=== PATIENT | male | born 1945 | race Caucasian/White ===

== ENCOUNTER 2018-04-12 20:21 | Emergency (ER) | payer SELFPAY ==
[2018-04-12 20:52] VITALS: BP 144/98; PULSE 120; RESP 18; TEMP 36.6; O2SAT 98; BMI 22.4
[2018-04-12 21:00] VITALS: BP 136/82; PULSE 104; O2SAT 98
[2018-04-12 21:08] LABS: Bacteria Urine None Seen; WBC Urine None Seen (0-5/HPF)
[2018-04-12 21:18] LABS: RBC Urine 5-10/HPF (0-5/HPF)
[2018-04-12 21:19] LABS: Culture Indicated Urine Cult Not Indicated
--- NOTE | 2018-04-12 21:26 | ED.MALEGU ---
HPI - Male Genitourinary <ROSSY Lemon - Last Filed: 04/12/18 21:33> General Chief complaint: Urogenital-Male Stated complaint: UNABLE TO PEE Time Seen by Provider: 04/12/18 21:02 Source: patient Mode of arrival: ambulatory Limitations: no limitations History of Present Illness HPI Narrative: Patient presents with chief complaint of urinary retention. He has a history of BPH and takes Flomax. He sees a urologist. He states from time to time he has urinary retention problems and ends up needing a Karimi catheter with a leg bag. He denies any UTI symptoms including dysuria urgency or frequency. he states he has not had a full urination since yesterday and last void was about 50 cc at 5:00 p.m.. He denies any fever, nausea vomiting or diarrhea. He denies any chest pain or shortness of breath. Upon arrival his bladder scan for 750 cc an a Karimi catheter was placed. Related Data Home Medications Medication Instructions Recorded Confirmed ASPIRIN (#ASPIR 81) 81 mg PO EVERY OTHER DAY #0 12/01/11 Previous Rx's Medication Instructions Recorded hydrochlorothiazide 25 mg PO QDAY #365 tab 01/11/17 lisinopril [Zestril] 10 mg PO Q DAY #365 tab 01/11/17 levothyroxine 137 mcg PO QDAY@0600 #90 tab 01/21/18 simvastatin 40 mg PO QDAY #90 tab 04/09/18 Allergies Allergy/AdvReac Type Severity Reaction Status Date / Time No Known Drug Allergies Allergy Verified 04/12/18 20:57 Review of Systems <ROSSY Lemon - Last Filed: 04/12/18 21:33> Review of Systems GENERAL: Denies chills, fatigue, malaise, fever, sweats. HEENT: Denies sinus pain, ear pain, sore throat, difficulty swallowing, dizziness. RESPIRATORY: Denies dyspnea, cough, wheezing, hemoptysis, sputum. CARDIOVASCULAR: Denies chest pain, palpitations, orthopnea, edema, GASTROINTESTINAL: Denies nausea, vomiting, abdominal pain, diarrhea, constipation, melena. : see HPI MUSCULOSKELETAL: denies weakness, joint pain, or bony pain SKIN: Denies rash, skin lesions, or other NEUROLOGIC: Denies weakness, headache, numbness, change in speech, confusion, seizures, incoordination. PSYCHIATRIC: No concerning psychosocial issues. 12 point review of systems is negative except for those stated above Exam <MODE Lemon - Last Filed: 04/12/18 21:33> Narrative Exam Narrative: GENERAL: obese elderly gentleman lying on stretcher HEAD: Atraumatic. Normocephalic. No temporal or scalp tenderness. EYES: Pupils equal round and reactive. Extraocular motions intact. No scleral icterus. No injection or drainage. ENT: Nose without bleeding, purulent drainage or septal hematoma. Throat without erythema, tonsillar hypertrophy or exudate. Uvula midline. Airway patent. NECK: Trachea midline. No JVD or lymphadenopathy. Supple, nontender, no meningeal signs. CARDIOVASCULAR: Regular rate and rhythm RESPIRATORY: Clear to auscultation. Breath sounds equal bilaterally. No wheezes, rales, or rhonchi. GASTROINTESTINAL: Abdomen soft, non-tender, nondistended. No hepato-splenomegaly, or palpable masses. No guarding. active bowel sounds all 4 quadrants. No pain to palpation. EXTREMITIES: No clubbing, cyanosis, or edema. No joint tenderness, effusion, or edema noted. BACK: Nontender without deformity or crepitance. No flank tenderness. NEURO: AOx3. SKIN: No rash or erythema. Initial Vital Signs Initial Vital Signs: Vital Signs Temperature 97.9 F 04/12/18 20:52 Pulse Rate 120 H 04/12/18 20:52 Respiratory Rate 18 04/12/18 20:52 Blood Pressure 144/98 H 04/12/18 20:52 Pulse Oximetry 98 04/12/18 20:52 <Aleah Nelson DO - Last Filed: 04/13/18 04:19> Initial Vital Signs Initial Vital Signs: Vital Signs Temperature 97.9 F 04/12/18 20:52 Pulse Rate 120 H 04/12/18 20:52 Respiratory Rate 18 04/12/18 20:52 Blood Pressure 144/98 H 04/12/18 20:52 Pulse Oximetry 98 04/12/18 20:52 Course <MODE Lemon - Last Filed: 04/12/18 21:33> Course Narrative: Orders Ordered: ED Orders 04/12/18 20:45 Urine Microscopic Stat Vital Signs - 8 hr 04/12/18 20:52 04/12/18 21:00 Temperature 97.9 F Pulse Rate 120 H 104 H Respiratory Rate 18 Blood Pressure 144/98 H Blood Pressure [Right Arm] 136/82 Pulse Oximetry 98 98 <Aleah Nelson DO - Last Filed: 04/13/18 04:19> Orders Ordered: ED Orders 04/12/18 20:45 Urine Microscopic Stat Vital Signs - 8 hr 04/12/18 20:52 04/12/18 21:00 Temperature 97.9 F Pulse Rate 120 H 104 H Respiratory Rate 18 Blood Pressure 144/98 H Blood Pressure [Right Arm] 136/82 Pulse Oximetry 98 98 MDM - Male Genitourinary <ROSSY LemonBC - Last Filed: 04/12/18 21:33> Lab Data Lab Results 04/12/18 Range/Units 20:45 Urine RBC 5-10/hpf H (0-5/HPF) Urine WBC None seen (0-5/HPF) Urine Bacteria None seen (None) Ur Culture Indicated? Cult not indicated Micro UA Comment Not Reportable Urine Dip Bedside Urine Glucose Negative Bedside Urine Bilirubin - Negative Bedside Urine Ketone - Negative Urine Specific [place] 1.025 Bedside Urine Occult Blood ++ Bedside Urine pH 6.0 Bedside Urine Protein +/- 15 Bedside Urine Urobilinogen - Negative Bedside Urine Nitrite - Negative Bedside Urine Leukocytes - Negative Esterase MDM Narrative Medical decision making narrative: Patient presents with chief complaint of urinary retention. He was bladder scanned for 750 cc in the Karimi catheter was placed. A UA was sent and did not have any signs of infection. Patient states he has experienced with home Karimi catheters and is comfortable managing one. He states understanding follow-up with Urology. I encouraged him to clean his catheter as well as monitor for signs and symptoms of infection. Discussed return precautions and has no questions upon discharge. <Aleah Nelson DO - Last Filed: 04/13/18 04:19> Lab Data Lab Results 04/12/18 Range/Units 20:45 Urine RBC 5-10/hpf H (0-5/HPF) Urine WBC None seen (0-5/HPF) Urine Bacteria None seen (None) Ur Culture Indicated? Cult not indicated Micro UA Comment Not Reportable Urine Dip Bedside Urine Glucose Negative Bedside Urine Bilirubin - Negative Bedside Urine Ketone - Negative Urine Specific [place] 1.025 Bedside Urine Occult Blood ++ Bedside Urine pH 6.0 Bedside Urine Protein +/- 15 Bedside Urine Urobilinogen - Negative Bedside Urine Nitrite - Negative Bedside Urine Leukocytes - Negative Esterase Discharge Plan Departure Patient Disposition: Home Clinical Impression: Acute urinary retention Discharge Date/Time: 04/12/18 21:42 Interventions: ED Discharge Assessment Last Done: 04/12/18 21:42 Instructions: How to Care for Your Karimi Catheter -- Male, DI for Urinary Retention in Men Activity Restrictions/Additional Instructions: we placed a Karimi catheter today. Please follow-up with your urologist as discussed. Please keep her catheter clean and monitor for signs symptoms of infection including flank pain and fever. I have given you contact information for several different Urology practices. Prescriptions: No Action ASPIRIN (#ASPIR 81) 81 mg PO EVERY OTHER DAY Qty: 0 RF: 0 lisinopril [Zestril] 10 MG tablet 10 mg PO Q DAY Qty: 365 RF: 3 hydrochlorothiazide 25 MG tablet 25 mg PO QDAY Qty: 365 RF: 0 levothyroxine 137 mcg tablet 137 mcg PO QDAY@0600 Qty: 90 RF: 0 simvastatin 40 mg tablet 40 mg PO QDAY Qty: 90 RF: 3 Referrals: [facility] Urology [Outside] [facility]rology [Outside] [facility] [Outside] [facility]rology [Outside] Jude Thorne MD [Primary Care Provider] - <Aleah Nelson DO - Last Filed: 04/13/18 04:19> [facility] Att[facility]: I was immediately available in the department for consultation. Documentation has been reviewed. I agree with assessment and plan.
--- NOTE | 2018-04-12 21:32 | ED_ITS ---
HPI - Male Genitourinary <ROSSY Lemon - Last Filed: 04/12/18 21:33> General Chief complaint: Urogenital-Male Stated complaint: UNABLE TO PEE Time Seen by Provider: 04/12/18 21:02 Source: patient Mode of arrival: ambulatory Limitations: no limitations History of Present Illness HPI Narrative: Patient presents with chief complaint of urinary retention. He has a history of BPH and takes Flomax. He sees a urologist. He states from time to time he has urinary retention problems and ends up needing a Karimi catheter with a leg bag. He denies any UTI symptoms including dysuria urgency or frequency. he states he has not had a full urination since yesterday and last void was about 50 cc at 5:00 p.m.. He denies any fever, nausea vomiting or diarrhea. He denies any chest pain or shortness of breath. Upon arrival his bladder scan for 750 cc an a Karimi catheter was placed. Related Data Home Medications Medication Instructions Recorded Confirmed ASPIRIN (#ASPIR 81) 81 mg PO EVERY OTHER DAY #0 12/01/11 Previous Rx's Medication Instructions Recorded hydrochlorothiazide 25 mg PO QDAY #365 tab 01/11/17 lisinopril [Zestril] 10 mg PO Q DAY #365 tab 01/11/17 levothyroxine 137 mcg PO QDAY@0600 #90 tab 01/21/18 simvastatin 40 mg PO QDAY #90 tab 04/09/18 Allergies Allergy/AdvReac Type Severity Reaction Status Date / Time No Known Drug Allergies Allergy Verified 04/12/18 20:57 Review of Systems <ROSSY Lemon - Last Filed: 04/12/18 21:33> Review of Systems GENERAL: Denies chills, fatigue, malaise, fever, sweats. HEENT: Denies sinus pain, ear pain, sore throat, difficulty swallowing, dizziness. RESPIRATORY: Denies dyspnea, cough, wheezing, hemoptysis, sputum. CARDIOVASCULAR: Denies chest pain, palpitations, orthopnea, edema, GASTROINTESTINAL: Denies nausea, vomiting, abdominal pain, diarrhea, constipation, melena. : see HPI MUSCULOSKELETAL: denies weakness, joint pain, or bony pain SKIN: Denies rash, skin lesions, or other NEUROLOGIC: Denies weakness, headache, numbness, change in speech, confusion, seizures, incoordination. PSYCHIATRIC: No concerning psychosocial issues. 12 point review of systems is negative except for those stated above Exam <MODE Lemon - Last Filed: 04/12/18 21:33> Narrative Exam Narrative: GENERAL: obese elderly gentleman lying on stretcher HEAD: Atraumatic. Normocephalic. No temporal or scalp tenderness. EYES: Pupils equal round and reactive. Extraocular motions intact. No scleral icterus. No injection or drainage. ENT: Nose without bleeding, purulent drainage or septal hematoma. Throat without erythema, tonsillar hypertrophy or exudate. Uvula midline. Airway patent. NECK: Trachea midline. No JVD or lymphadenopathy. Supple, nontender, no meningeal signs. CARDIOVASCULAR: Regular rate and rhythm RESPIRATORY: Clear to auscultation. Breath sounds equal bilaterally. No wheezes , rales, or rhonchi. GASTROINTESTINAL: Abdomen soft, non-tender, nondistended. No hepato-splenomegaly , or palpable masses. No guarding. active bowel sounds all 4 quadrants. No pain to palpation. EXTREMITIES: No clubbing, cyanosis, or edema. No joint tenderness, effusion, or edema noted. BACK: Nontender without deformity or crepitance. No flank tenderness. NEURO: AOx3. SKIN: No rash or erythema. Initial Vital Signs Initial Vital Signs: Vital Signs Temperature 97.9 F 04/12/18 20:52 Pulse Rate 120 H 04/12/18 20:52 Respiratory Rate 18 04/12/18 20:52 Blood Pressure 144/98 H 04/12/18 20:52 Pulse Oximetry 98 04/12/18 20:52 <Aleah Nelson DO - Last Filed: 04/13/18 04:19> Initial Vital Signs Initial Vital Signs: Vital Signs Temperature 97.9 F 04/12/18 20:52 Pulse Rate 120 H 04/12/18 20:52 Respiratory Rate 18 04/12/18 20:52 Blood Pressure 144/98 H 04/12/18 20:52 Pulse Oximetry 98 04/12/18 20:52 Course <MODE Lemon - Last Filed: 04/12/18 21:33> Course Narrative: Orders Ordered: ED Orders 04/12/18 20:45 Urine Microscopic Stat Vital Signs - 8 hr 04/12/18 20:52 04/12/18 21:00 Temperature 97.9 F Pulse Rate 120 H 104 H Respiratory Rate 18 Blood Pressure 144/98 H Blood Pressure [Right Arm] 136/82 Pulse Oximetry 98 98 <Aleah Nelson DO - Last Filed: 04/13/18 04:19> Orders Ordered: ED Orders 04/12/18 20:45 Urine Microscopic Stat Vital Signs - 8 hr 04/12/18 20:52 04/12/18 21:00 Temperature 97.9 F Pulse Rate 120 H 104 H Respiratory Rate 18 Blood Pressure 144/98 H Blood Pressure [Right Arm] 136/82 Pulse Oximetry 98 98 MDM - Male Genitourinary <ROSSY LemonBC - Last Filed: 04/12/18 21:33> Lab Data Lab Results 04/12/18 Range/Units 20:45 Urine RBC 5-10/hpf H (0-5/HPF) Urine WBC None seen (0-5/HPF) Urine Bacteria None seen (None) Ur Culture Indicated? Cult not indicated Micro UA Comment Not Reportable Urine Dip Bedside Urine Glucose Negative Bedside Urine Bilirubin - Negative Bedside Urine Ketone - Negative Urine Specific [place] 1.025 Bedside Urine Occult Blood ++ Bedside Urine pH 6.0 Bedside Urine Protein +/- 15 Bedside Urine Urobilinogen - Negative Bedside Urine Nitrite - Negative Bedside Urine Leukocytes - Negative Esterase MDM Narrative Medical decision making narrative: Patient presents with chief complaint of urinary retention. He was bladder scanned for 750 cc in the Karimi catheter was placed. A UA was sent and did not have any signs of infection. Patient states he has experienced with home Karimi catheters and is comfortable managing one. He states understanding follow-up with Urology. I encouraged him to clean his catheter as well as monitor for signs and symptoms of infection. Discussed return precautions and has no questions upon discharge. <Aleah Nelson DO - Last Filed: 04/13/18 04:19> Lab Data Lab Results 04/12/18 Range/Units 20:45 Urine RBC 5-10/hpf H (0-5/HPF) Urine WBC None seen (0-5/HPF) Urine Bacteria None seen (None) Ur Culture Indicated? Cult not indicated Micro UA Comment Not Reportable Urine Dip Bedside Urine Glucose Negative Bedside Urine Bilirubin - Negative Bedside Urine Ketone - Negative Urine Specific [place] 1.025 Bedside Urine Occult Blood ++ Bedside Urine pH 6.0 Bedside Urine Protein +/- 15 Bedside Urine Urobilinogen - Negative Bedside Urine Nitrite - Negative Bedside Urine Leukocytes - Negative Esterase Discharge Plan Departure Patient Disposition: Home Clinical Impression: Acute urinary retention Discharge Date/Time: 04/12/18 21:42 Interventions: ED Discharge Assessment Last Done: 04/12/18 21:42 Instructions: How to Care for Your Karimi Catheter -- Male, DI for Urinary Retention in Men Activity Restrictions/Additional Instructions: we placed a Karimi catheter today. Please follow-up with your urologist as discussed. Please keep her catheter clean and monitor for signs symptoms of infection including flank pain and fever. I have given you contact information for several different Urology practices. Prescriptions: No Action ASPIRIN (#ASPIR 81) 81 mg PO EVERY OTHER DAY Qty: 0 RF: 0 lisinopril [Zestril] 10 MG tablet 10 mg PO Q DAY Qty: 365 RF: 3 hydrochlorothiazide 25 MG tablet 25 mg PO QDAY Qty: 365 RF: 0 levothyroxine 137 mcg tablet 137 mcg PO QDAY@0600 Qty: 90 RF: 0 simvastatin 40 mg tablet 40 mg PO QDAY Qty: 90 RF: 3 Referrals: [facility]rology [Outside] [facility]rology [Outside] [facility] [Outside] [facility]rology [Outside] Jude Thorne MD [Primary Care Provider] - <Aleah Nelson DO - Last Filed: 04/13/18 04:19> [facility] Att[facility]: I was immediately available in the department for consultation. Documentation has been reviewed. I agree with assessment and plan.
== END 2018-04-12 21:42 | disposition home or self-care (01) ==
PROVIDERS: Emergency Medicine; Emergency Provider Nurse Practitioner Family; PCP Internal Medicine
DX: R33.9 Retention of urine, unspecified (principal)
CPT/HCPCS: 51701; 51798; 81003; 81015; 99283

== ENCOUNTER 2018-05-27 10:05 | Emergency (ER) | payer SELFPAY ==
[2018-05-27 10:10] VITALS: PULSE 121; RESP 18; O2SAT 97; BMI 34.2
--- NOTE | 2018-05-27 11:13 | PC.NURSE ---
Pt w/ long history of urinary retention r/t enlarged prostate. Had solis removed yesterday and has been unable to void since that time. Appears uncomfortable.
[2018-05-27 11:28] LABS: Bacteria Urine None Seen
[2018-05-27 11:29] LABS: Appearance Urine UA CLEAR; Bilirubin Urine UA NEGATIVE (NEGATIVE); Color Urine UA YELLOW; Glucose Urine UA NEGATIVE (Normal); Ketones Urine UA NEGATIVE (NEGATIVE); Leukocyte Esterase Urine UA NEGATIVE (NEGATIVE); Nitrite Urine UA NEGATIVE (Negative); Occult Blood Urine UA 3+ (Negative); Protein Urine UA NEGATIVE (Negative); Urobilinogen Urine UA 0.2 E.U./dL (0.2); pH Urine UA 6.5 (4.5-8.0)
[2018-05-27 11:40] LABS: Culture Indicated Urine Specimen Cultured; WBC Urine 10-30/HPF (0-5/HPF)
[2018-05-27 11:41] LABS: RBC Urine 5-10/HPF (0-5/HPF)
[2018-05-27 11:54] VITALS: BP 105/66; PULSE 98; RESP 16; O2SAT 94
--- NOTE | 2018-05-27 12:41 | ED_ITS ---
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 He states that he has had issues with this for more than a year. Last time catheter was placed was 6 weeks ago, removed yesterday for a trial. He states that initially he was able to urinate, but had continually decreased stream since then and last time he was able to urinate with 6:00 a.m. and just a dribble. He denies any new symptoms such as frequency, dysuria, or fever. He states that he has some blood periodically with the catheter, especially with insertion and removal. He denies any new fever, abdominal pain, nausea, vomiting or other complaints. Related Data Home Medications Medication Instructions Recorded Confirmed aspirin 81 mg PO EVERY OTHER DAY #0 12/01/11 05/27/18 hydrochlorothiazide 25 mg PO DAILY 05/27/18 05/27/18 levothyroxine 137 mcg PO DAILY 05/27/18 05/27/18 lisinopril [Zestril] 10 mg PO DAILY 05/27/18 05/27/18 simvastatin 40 mg PO DAILY 05/27/18 05/27/18 Allergies Allergy/AdvReac Type Severity Reaction Status Date / Time No Known Drug Allergies Allergy Verified 05/27/18 10:10 Review of Systems <Mikki Guerrero PA-C - Last Filed: 05/27/18 21:34> Review of Systems All systems reviewed & are unremarkable except as noted in HPI and below Exam <Mikki Guerrero PA-C - Last Filed: 05/27/18 21:34> Narrative Exam Narrative: GENERAL APPEARANCE: Patient sitting comfortably, in no distress. LUNGS: Clear to auscultation bilaterally. HEART: Rate and rhythm regular without murmur, normal S1 and S2, no S3 or S4. ABDOMEN: Soft, NT, ND, +BS x 4 quadrants, no CVAT. EXTREMITIES: No edema or calf tenderness NEURO: Alert and oriented, normal speech and coordination Initial Vital Signs Initial Vital Signs: Vital Signs Pulse Rate 121 H 05/27/18 10:10 Respiratory Rate 18 05/27/18 10:10 Pulse Oximetry 97 05/27/18 10:10 <DO Ayesha Braga Last Filed: 05/28/18 08:47> Initial Vital Signs Initial Vital Signs: Vital Signs Pulse Rate 121 H 05/27/18 10:10 Respiratory Rate 18 05/27/18 10:10 Pulse Oximetry 97 05/27/18 10:10 Course <Mikki Guerrero PA-C - Last Filed: 05/27/18 21:34> Orders Ordered: Discontinued Medications Lidocaine HCl (Urojet) 5 ml TOP NOW ONE Stop: 05/27/18 11:14 Last Admin: 05/27/18 13:32 Dose: 5 ml Vital Signs - 8 hr 05/27/18 10:10 05/27/18 11:54 05/27/18 12:50 Temperature 98.1 F Pulse Rate 121 H 98 H 94 H Respiratory Rate 18 16 17 Blood Pressure [Right Arm] 105/66 114/69 Pulse Oximetry 97 94 99 <DO Ayesha Braga Last Filed: 05/28/18 08:47> Orders Ordered: Discontinued Medications Lidocaine HCl (Urojet) 5 ml TOP NOW ONE Stop: 05/27/18 11:14 Last Admin: 05/27/18 13:32 Dose: 5 ml Vital Signs - 8 hr 05/27/18 10:10 05/27/18 11:54 05/27/18 12:50 Temperature 98.1 F Pulse Rate 121 H 98 H 94 H Respiratory Rate 18 16 17 Blood Pressure [Right Arm] 105/66 114/69 Pulse Oximetry 97 94 99 MDM - Male Genitourinary <Mikki Guerrero PA-C - Last Filed: 05/27/18 21:34> Lab Data Lab Results 05/27/18 Range/Units 11:05 Urine Color Yellow Urine Appearance Clear Urine pH 6.5 (4.5-8.0) Ur Specific [place] 1.010 (1.000-1.035) Urine Protein Negative (Negative) Urine Glucose (UA) Negative (Normal) g/dL Urine Ketones Negative (NEGATIVE) Urine Occult Blood 3+ H (Negative) Urine Nitrate Negative (Negative) Urine Bilirubin Negative (NEGATIVE) Urine Urobilinogen 0.2 (0.2) E.U./dL Ur Leukocyte Esterase Negative (NEGATIVE) Urine RBC 5-10/hpf H (0-5/HPF) Urine WBC 10-30/hpf H (0-5/HPF) Urine Bacteria None seen (None) Ur Culture Indicated? Specimen cultured Micro UA Comment Not Reportable <Aleah DO Omar - Last Filed: 05/28/18 08:47> Lab Data Lab Results 05/27/18 Range/Units 11:05 Urine Color Yellow Urine Appearance Clear Urine pH 6.5 (4.5-8.0) Ur Specific [place] 1.010 (1.000-1.035) Urine Protein Negative (Negative) Urine Glucose (UA) Negative (Normal) g/dL Urine Ketones Negative (NEGATIVE) Urine Occult Blood 3+ H (Negative) Urine Nitrate Negative (Negative) Urine Bilirubin Negative (NEGATIVE) Urine Urobilinogen 0.2 (0.2) E.U./dL Ur Leukocyte Esterase Negative (NEGATIVE) Urine RBC 5-10/hpf H (0-5/HPF) Urine WBC 10-30/hpf H (0-5/HPF) Urine Bacteria None seen (None) Ur Culture Indicated? Specimen cultured Micro UA Comment Not Reportable Discharge Plan Departure Patient Disposition: Home Clinical Impression: Enlarged prostate with urinary retention Discharge Date/Time: 05/27/18 13:42 Interventions: ED Discharge Assessment Last Done: 05/27/18 13:41 Instructions: How to Care for Your Karimi Catheter -- Male, DI for Urinary Retention in Men Activity Restrictions/Additional Instructions: Since this is similar to the urinary retention you have had in the past due to enlarged prostate, please keep the catheter in. Please continue your current medications including tamsulosin. Please call your urologist when you leave today and arrange for follow-up (let them know that you were seen in the ED to reinsert the catheter). Prescriptions: No Action aspirin 81 mg Tablet,Delayed Release (Dr/Ec) 81 mg PO EVERY OTHER DAY Qty: 0 RF: 0 levothyroxine 137 mcg tablet 137 mcg PO DAILY RF: 0 simvastatin 40 mg tablet 40 mg PO DAILY RF: 0 lisinopril [Zestril] 10 mg tablet 10 mg PO DAILY RF: 0 hydrochlorothiazide 25 mg tablet 25 mg PO DAILY RF: 0 Referrals: Norma Thompson MD [Non-Staff] - Jude Thorne MD [Primary Care Provider] - <Aleah Nelson DO - Last Filed: 05/28/18 08:47> [facility] ED Attending Cosignature Attestation: I was immediately available in the department for consultation. Documentation has been reviewed. I agree with assessment and plan.
[2018-05-27 12:50] VITALS: BP 114/69; PULSE 94; RESP 17; TEMP 36.7; O2SAT 99
[2018-05-27] MEDS: LIDOCAINE 2% (UROJET) 5 ML GEL TOP (13:32)
--- NOTE | 2018-05-27 13:33 | PC.NURSE ---
Pt noted to have dark urine. Encouraged increased po fluids. Pt verbalized understanding.
== END 2018-05-27 13:42 | disposition home or self-care (01) ==
PROVIDERS: Emergency Medicine; Emergency Provider Internal Medicine; PCP Internal Medicine
DX: N40.1 Benign prostatic hyperplasia with lower urinary tract symptoms (principal); R33.8 Other retention of urine
CPT/HCPCS: 51701; 81001; 87086; 99283

== ENCOUNTER → 2018-08-07 15:38 | Outpatient (CLI) | payer SELFPAY ==
[2018-08-07 17:13] LABS: Alanine Aminotransferase 29 IU/L (21-72); Albumin 4.2 g/dL (3.5-5.0); Albumin Globulin Ratio 1.4 (1.0-2.8); Alkaline Phosphatase 67 U/L (38-126); Aspartate Aminotransferase 22 IU/L (17-59); Bilirubin Total 0.9 mg/dL (0.2-1.3); Blood Urea Nitrogen 14 mg/dL (9-20); Calcium 9.7 mg/dL (8.4-10.2); Carbon Dioxide 25 mmol/L (22-32); Chloride 101 mmol/L (98-107); Cholesterol 141 mg/dL (140-199); Estimated Glomerular Filt Rate > 60.0 mL/min (>60); Glucose 90 mg/dL (80-110); HDL Cholesterol 44 mg/dL (40-60); HEMOLYSIS < 15 (0-50); LDL Cholesterol Calculated 76 mg/dL (<100); Potassium 4.3 mmol/L (3.4-5.1); Sodium 138 mmol/L (137-145); Total Protein 7.2 g/dL (6.3-8.2); Triglycerides 106 mg/dL (35-150)
[2018-08-07 17:27] LABS: Free T4, Direct Thyroxine 1.84 ng/dL (0.78-2.19)
[2018-08-07 17:41] LABS: Thyroid Stimulating Hormone 3.64 uIU/mL (0.47-4.68)
== END ==
PROVIDERS: PCP Internal Medicine; Visit Provider Internal Medicine
DX: E03.9 Hypothyroidism, unspecified (principal); E78.5 Hyperlipidemia, unspecified; I10 Essential (primary) hypertension; R97.20 Elevated prostate specific antigen [PSA]
CPT/HCPCS: 36415; 80053; 80061; 84153; 84439; 84443

== ENCOUNTER → 2020-01-20 13:59 | Outpatient (CLI) | payer SELFPAY ==
[2020-01-20 16:29] LABS: Alanine Aminotransferase 18 IU/L (<50); Albumin 4.2 g/dL (3.5-5.0); Albumin Globulin Ratio 1.6 (1.0-2.8); Alkaline Phosphatase 61 U/L (38-126); Aspartate Aminotransferase 26 IU/L (17-59); Bilirubin Total 1.1 mg/dL (0.2-1.3); Blood Urea Nitrogen 16 mg/dL (9-20); Carbon Dioxide 28 mmol/L (22-32); Chloride 101 mmol/L (98-107); Cholesterol 130 mg/dL (140-199); Estimated Glomerular Filt Rate > 60.0 mL/min (>60); Globulin 2.7 g/dL (1.7-4.1); Glucose 80 mg/dL (80-110); HDL Cholesterol 40 mg/dL (40-60); HEMOLYSIS < 15 (0-50); LDL Cholesterol Calculated 74 mg/dL (<100); Potassium 4.2 mmol/L (3.4-5.1); Sodium 137 mmol/L (137-145); Total Protein 6.9 g/dL (6.3-8.2); Triglycerides 81 mg/dL (35-150)
[2020-01-20 16:45] LABS: Free T4, Direct Thyroxine 1.99 ng/dL (0.78-2.19)
[2020-01-20 16:59] LABS: Thyroid Stimulating Hormone 0.019 uIU/mL (0.47-4.68)
[2020-01-20 17:00] LABS: Prostate Specific Antigen 9.24 ng/mL (0.10-4.00)
== END ==
PROVIDERS: PCP Internal Medicine; Referring Provider Internal Medicine; Visit Provider Internal Medicine
DX: E03.9 Hypothyroidism, unspecified (principal); E78.5 Hyperlipidemia, unspecified; I10 Essential (primary) hypertension; R97.20 Elevated prostate specific antigen [PSA]
CPT/HCPCS: 36415; 80053; 80061; 84153; 84439; 84443

== ENCOUNTER → 2020-01-23 15:45 | Outpatient (CLI) | payer SELFPAY ==
[2020-01-24 06:36] LABS: PSA Free % 40.8 % (.); PSA, Total 8.4 ng/mL (0.0-4.0)
== END ==
LOC: LAB 15:51
PROVIDERS: PCP Internal Medicine; Referring Provider Internal Medicine; Visit Provider Internal Medicine
DX: R97.20 Elevated prostate specific antigen [PSA] (principal)
CPT/HCPCS: 36415; 84153; 84154

== ENCOUNTER → 2021-08-02 17:21 | Outpatient (CLI) | payer SELFPAY ==
[2021-08-02 18:06] LABS: Alanine Aminotransferase 23 IU/L (<50); Albumin 4.3 g/dL (3.5-5.0); Albumin Globulin Ratio 1.1 (1.0-2.8); Alkaline Phosphatase 60 U/L (38-126); Aspartate Aminotransferase 31 IU/L (17-59); BUN Creatinine Ratio 14.5 (6-22); Blood Urea Nitrogen 17 mg/dL (9-20); Calcium 9.8 mg/dL (8.4-10.2); Carbon Dioxide 29 mmol/L (22-32); Chloride 102 mmol/L (98-107); Cholesterol 170 mg/dL (140-199); Estimated Glomerular Filt Rate > 60.0 mL/min (>60); Globulin 3.8 g/dL (1.7-4.1); Glucose 94 mg/dL (80-110); HDL Cholesterol 44 mg/dL (40-60); HEMOLYSIS < 15 (0-50); LDL Cholesterol Calculated 108 mg/dL (<100); Potassium 4.1 mmol/L (3.4-5.1); Sodium 139 mmol/L (137-145); Total Protein 8.1 g/dL (6.3-8.2); Triglycerides 88 mg/dL (35-150)
[2021-08-02 18:35] LABS: Prostate Specific Antigen 8.51 ng/mL (0.10-4.00)
[2021-08-02 18:57] LABS: Free T4, Direct Thyroxine 1.53 ng/dL (0.78-2.19)
[2021-08-02 19:11] LABS: Thyroid Stimulating Hormone 2.55 uIU/mL (0.47-4.68)
== END ==
PROVIDERS: PCP Internal Medicine; Referring Provider Internal Medicine; Visit Provider Internal Medicine
DX: E03.9 Hypothyroidism, unspecified (principal); E78.5 Hyperlipidemia, unspecified; I10 Essential (primary) hypertension; N40.0 Benign prostatic hyperplasia without lower urinary tract symptoms; R97.20 Elevated prostate specific antigen [PSA]
CPT/HCPCS: 36415; 80053; 80061; 84153; 84439; 84443

== ENCOUNTER 2023-06-02 06:02 | Emergency (ER) | payer MEDICARE, SELFPAY ==
[2023-06-02] VITALS (14 sets, daily range): BP systolic 101–118; BP diastolic 61–77; PULSE 59–94; RESP 10–21; TEMP 36.8; O2SAT 95–100; BMI 26.8
--- NOTE | 2023-06-02 06:12 | DI.CT.S_ITS ---
PROCEDURE: CT ABDOMEN PELVIS W CON INDICATIONS: scrotal swelling, hard, erythema TECHNIQUE: After the administration of intravenous contrast, axial sections acquired from the lung bases to the pubic symphysis. Coronal and sagittal reformats were performed. For radiation dose reduction, the following was used: automated exposure control, adjustment of mA and/or kV according to patient size. COMPARISON: None. FINDINGS: Image quality: Diagnostic Lung bases: Bibasilar atelectasis. Heart: Heart size is normal. Coronary atherosclerotic vascular calcifications are noted. ABDOMEN: Liver: Unremarkable. Gallbladder: Unremarkable Biliary ducts: Unremarkable. Pancreas: Unremarkable. Spleen: Unremarkable. Adrenal Glands: Unremarkable. Kidneys and Ureters: Cortical scarring of the left kidney. Subcentimeter left renal hypodensity likely representing a cyst. Prominent left renal pelvis similar to the right without evidence for hydronephrosis. There is a prominent, dilated right renal pelvis without hydronephrosis of the right kidney. There is cortical scarring of the right kidney as well. Nonobstructing 11 mm stone seen in the right kidney. Bilateral ureters are otherwise normal in course and caliber. No ureteral stones. No significant perinephric or periureteral stranding. Stomach and Bowel: Stomach, small bowel loops, and colon are unremarkable. Peritoneum: No abnormal intraperitoneal fluid. No free air. Ventral Wall: There is a fat-containing umbilical hernia without acute inflammation. Abdominal Nodes: No retroperitoneal or mesenteric adenopathy by size criteria. Vessels: Scattered atherosclerotic calcifications of the abdominal aorta and iliac vessels without aneurysmal dilatation. The inferior vena cava appears patent. PELVIS: Pelvic Organs: There is moderate prostate enlargement with heterogeneous enhancement. Prostate gland measures approximately 6.9 x 5.9 cm in axial cross-sectional dimension. Bladder: Urinary bladder is decompressed by Solis catheter. There is moderate urinary bladder wall thickening with associated perivesicular inflammatory stranding. Additionally, there is an irregular, multi loculated fluid collection extending from the posterior, inferior margin of the urinary bladder and posterior wall of the prostate gland extending inferiorly into the pelvic floor and scrotal region measuring approximately 18 cm in AP dimension, 10 cm in transverse dimension, and approximately 12.6 cm in craniocaudal dimension. There is surrounding inflammatory changes. Several internal septations. There is incomplete enhancement posteriorly. No definite evidence for complete organization. No internal locules of gas. This appears to be in the perineal soft tissues but still outside the scrotum. Pelvic Nodes: No enlarged lymph nodes. Miscellaneous: No hernias are seen. Bones: No acute vertebral body compression fractures. Multilevel spondylitic changes throughout the imaged spine. No suspicious osseous lesions. IMPRESSION: 1. Large, multi loculated, septated fluid collection with near complete rim enhancement noted in the inferior perineal soft tissues extending into the posterior scrotum with associated inflammatory changes measuring approximately 18 x 10 x 12.6 cm in size. This appears to be communication with the posterior, inferior wall of the urinary bladder as well as the posterior wall/margin of the enlarged prostate gland. Additionally, the urinary bladder wall is thickened and inflamed consistent with concurrent cystitis. Finding is concerning for early abscess as the posterior margins are not definitively organized. It is felt that this fluid collection is in the perineal space but still external to the scrotal structures and no evidence of extension into the peritoneal cavity. Further evaluation with urologic consultation is recommended. 2. Nonobstructing 11 mm right renal stone without hydronephrosis. There is symmetric prominence of the bilateral renal pelvises with tapering beyond ureteropelvic junction suggestive of chronic UPJ obstructions. 3. Other chronic findings as above. Findings were discussed with Dr. Vaughn at 0746 hrs. The patient is draining purulent urine from his solis. No significant discrepancy with the shift engineer radiology preliminary report. Dictated by: Gunner Tamayo M.D. on 06/02/2023 at 7:25 Approved by: Gunner Tamayo M.D. on 06/02/2023 at 8:03
--- NOTE | 2023-06-02 06:18 | ED_ITS ---
HPI - Male Genitourinary <Brandi Silver DO - Last Filed: 06/04/23 07:27> General Chief complaint: Urogenital-Male Stated complaint: diff urinating Time Seen by Provider: 06/02/23 06:12 Source: patient, EMS, RN notes reviewed and old records reviewed Mode of arrival: EMS Limitations: no limitations History of Present Illness HPI Narrative: 77-year-old male with history of hypertension, hypothyroidism, dyslipidemia, BPH with complaint of difficulty with urination for the past week with dribbling and swelling, redness and pain of the scrotal area. Patient states he is felt warm at times but denies any fevers. Denies any chest pain or shortness of breath. Denies any nausea or vomiting. Denies any abdominal pain other than suprapubically. States he is had trouble with stools he does not always realized when he is having a bowel movement. He states he is had trouble keeping himself clean in terms of urine and feces. Patient states he is had increasing swelling in the genital area and then it ?looks terrible down there.? Patient states he is decreased his fluid and food intake the last several days so he was not urinating as frequently. He notes he has had urinary catheter in the past but several years ago. States he is had prior tonsils and adenoids removed. No known drug allergies. Denies tobacco, denies regular alcohol or recreational drug use. Related Data Home Medications Medication Instructions Recorded Confirmed aspirin 81 mg tablet,delayed 81 mg PO EVERY OTHER DAY ##0 12/01/11 08/05/21 release ascorbic acid (vitamin C) 1,000 mg 1 gram PO DAILY 08/19/18 08/05/21 tablet cholecalciferol (vitamin D3) 100 100 mcg PO DAILY 01/23/20 08/05/21 mcg (4,000 unit) capsule multivitamin 1 tab PO DAILY 08/05/21 08/05/21 Previous Rx's Medication Instructions Recorded hydrochlorothiazide 25 mg tablet 25 mg PO DAILY #360 tabs 08/05/21 levothyroxine 137 mcg tablet 137 mcg PO DAILY #90 tabs 08/05/21 lisinopril 10 mg tablet (Zestril) 10 mg PO DAILY #360 tabs 08/05/21 simvastatin 40 mg tablet 40 mg PO DAILY #90 tabs 08/05/21 tamsulosin 0.4 mg capsule 0.4 mg PO DAILY #90 caps 08/05/21 Allergies Allergy/AdvReac Type Severity Reaction Status Date / Time No Known Drug Allergies Allergy Verified 08/05/21 16:02 Review of Systems <Brandi Silver DO - Last Filed: 06/04/23 07:27> Review of Systems ROS Unobtainable: All systems reviewed & are unremarkable except as noted in HPI and below Patient History <Brandi Silver DO - Last Filed: 06/04/23 07:27> Medical History (Updated 06/02/23 @ 08:24 by Skip Vaughn DO) Otosclerosis Elevated prostate specific antigen (PSA) (01/11/17) Essential hypertension Acquired hypothyroidism Hyperlipidemia (12/01/11) BPH (benign prostatic hyperplasia) Surgical History Status post ear surgery Status post lumbar laminectomy Social History Smoking Status: Never smoker alcohol intake: current additional social history: Rare EtOH Smoking Status: Never smoker Exam <Brandi Silver DO - Last Filed: 06/04/23 07:27> Narrative Exam Narrative: GENERAL: Alert and oriented x three, disheveled appearing male in mild distress. HEENT: Head normocephalic, atraumatic, EOMI, pupils reactive, face symmetric, moist mucous membranes NECK: Supple, full range of motion CARDIOVASCULAR: Regular rate and rhythm without murmurs, rubs or gallops. RESPIRATORY: Breath sounds equal bilaterally, no wheezes rales or rhonchi. ABDOMEN: Soft, nontender. Normoactive bowel sounds all 4 quadrants. No guarding or rebound, rigidity, no mass : No CVA tenderness. Male: normal external examination of the penis, no penile discharge or lesions, patient has significant swelling of bilateral testicles approximately a large cantaloupe in size swelling extends into the suprapubic area, testicles are firm with 2+ pitting edema, there is erythema and warmth to entire scrotum the area extends towards the perineal area. Patient has moderate tenderness. No subcutaneous emphysema or crepitus. Unable to assess cremasteric reflex intact, no inguinal hernias noted. There is erythema but no breakdown completely through the layers of skin appreciated on exam. Several small areas of punctate white. EXTREMITIES: Normal range of motion, no clubbing or edema. Neurovascularly intact NEUROLOGICAL: Cranial nerves II through XII grossly intact. Moving all extremities SKIN: Warm, dry, no petechiae, no rashes or lesions otherwise noted. Initial Vital Signs Initial Vital Signs: Vital Signs Pulse Rate 94 H 06/02/23 06:06 Blood Pressure 107/77 06/02/23 06:06 Pulse Oximetry 100 06/02/23 06:06 <Skip Vaugnh, DO - Last Filed: 06/02/23 09:55> Initial Vital Signs Initial Vital Signs: Vital Signs Pulse Rate 94 H 06/02/23 06:06 Blood Pressure 107/77 06/02/23 06:06 Pulse Oximetry 100 06/02/23 06:06 Course <Brandi Silver DO - Last Filed: 06/04/23 07:27> Orders Ordered: Discontinued Medications Piperacillin Sod/Tazobactam (Sod 4.5 gm/ Sodium Chloride) 100 mls @ 200 mls/hr IV NOW ONE Stop: 06/02/23 06:13 Last Infusion: 06/02/23 07:42 Dose: Infused Documented By: Admin: 06/02/23 06:48 Dose: 200 mls/hr Documented By: ZOË Clindamycin Phosphate (Cleocin) 900 mg in 50 mls @ 50 mls/hr IV NOW ONE Stop: 06/02/23 07:15 Last Infusion: 06/02/23 08:00 Dose: Infused Documented By: Infusion: 06/02/23 07:50 Dose: 50 mls/hr Documented By: Admin: 06/02/23 06:47 Dose: 50 mls/hr Documented By: SB Vancomycin HCl/Dextrose (Vancomycin) 1,500 mg in 300 mls @ 200 mls/hr IV NOW ONE Stop: 06/02/23 07:46 Last Infusion: 06/02/23 09:40 Dose: Infused Documented By: Admin: 06/02/23 07:42 Dose: 200 mls/hr Documented By: ES Sodium Chloride (Normal Saline 0.9%) 1,000 mls @ 1,000 mls/hr IV BOLUS ONE Stop: 06/02/23 07:21 Last Infusion: 06/02/23 07:58 Dose: Infused Documented By: Admin: 06/02/23 06:51 Dose: 1,000 mls/hr Documented By: ZOË Sodium Chloride (Normal Saline 0.9%) 1,000 mls @ 125 mls/hr IV CONT WALLY Last Infusion: 06/02/23 10:40 Dose: 125 mls/hr Documented By: Admin: 06/02/23 07:59 Dose: 125 mls/hr Documented By: MELECIO Lidocaine HCl (Lidocaine 2% (Glydo) 6 Ml Gel) 6 ml TOP NOW ONE Stop: 06/02/23 06:19 Last Admin: 06/02/23 06:48 Dose: 6 ml Documented By: ZOË Vital Signs Vital signs: Vital Signs - 8 hr 06/02/23 06:06 06/02/23 06:06 06/02/23 06:15 Temperature 98.3 F Pulse Rate 94 H 94 H Respiratory Rate 18 Blood Pressure 107/77 107/77 Pulse Oximetry 100 100 Oxygen Delivery Method Room Air 06/02/23 06:24 06/02/23 06:24 06/02/23 06:30 Temperature Pulse Rate 86 81 Respiratory Rate Blood Pressure 118/77 Pulse Oximetry 99 96 Oxygen Delivery Method 06/02/23 06:45 06/02/23 06:45 06/02/23 07:13 Temperature Pulse Rate 76 72 Respiratory Rate Blood Pressure 104/66 Pulse Oximetry 98 95 Oxygen Delivery Method 06/02/23 07:14 06/02/23 07:14 06/02/23 07:30 Temperature Pulse Rate 72 Respiratory Rate 21 Blood Pressure 107/65 101/61 Pulse Oximetry 99 Oxygen Delivery Method 06/02/23 07:30 06/02/23 08:00 06/02/23 08:00 Temperature Pulse Rate 64 67 Respiratory Rate 16 Blood Pressure 105/67 Pulse Oximetry 99 97 Oxygen Delivery Method Room Air 06/02/23 08:30 06/02/23 08:30 06/02/23 09:00 Temperature Pulse Rate 64 Respiratory Rate 11 L Blood Pressure 103/66 107/67 Pulse Oximetry 96 Oxygen Delivery Method 06/02/23 09:00 06/02/23 09:30 06/02/23 09:30 Temperature Pulse Rate 61 63 Respiratory Rate 10 L 14 Blood Pressure 111/69 Pulse Oximetry 98 99 Oxygen Delivery Method Room Air Room Air <Skip Vaughn DO - Last Filed: 06/02/23 09:55> Orders Ordered: Discontinued Medications Piperacillin Sod/Tazobactam (Sod 4.5 gm/ Sodium Chloride) 100 mls @ 200 mls/hr IV NOW ONE Stop: 06/02/23 06:13 Last Infusion: 06/02/23 07:42 Dose: Infused Documented By: Admin: 06/02/23 06:48 Dose: 200 mls/hr Documented By: ZOË Clindamycin Phosphate (Cleocin) 900 mg in 50 mls @ 50 mls/hr IV NOW ONE Stop: 06/02/23 07:15 Last Infusion: 06/02/23 08:00 Dose: Infused Documented By: Infusion: 06/02/23 07:50 Dose: 50 mls/hr Documented By: Admin: 06/02/23 06:47 Dose: 50 mls/hr Documented By: ZOË Vancomycin HCl/Dextrose (Vancomycin) 1,500 mg in 300 mls @ 200 mls/hr IV NOW ONE Stop: 06/02/23 07:46 Last Infusion: 06/02/23 09:40 Dose: Infused Documented By: Admin: 06/02/23 07:42 Dose: 200 mls/hr Documented By: CARY Sodium Chloride (Normal Saline 0.9%) 1,000 mls @ 1,000 mls/hr IV BOLUS ONE Stop: 06/02/23 07:21 Last Infusion: 06/02/23 07:58 Dose: Infused Documented By: Admin: 06/02/23 06:51 Dose: 1,000 mls/hr Documented By: ZOË Sodium Chloride (Normal Saline 0.9%) 1,000 mls @ 125 mls/hr IV CONT WALLY Last Infusion: 06/02/23 10:40 Dose: 125 mls/hr Documented By: Admin: 06/02/23 07:59 Dose: 125 mls/hr Documented By: MELECIO Lidocaine HCl (Lidocaine 2% (Glydo) 6 Ml Gel) 6 ml TOP NOW ONE Stop: 06/02/23 06:19 Last Admin: 06/02/23 06:48 Dose: 6 ml Documented By: ZOË Vital Signs Vital signs: Vital Signs - 8 hr 06/02/23 06:06 06/02/23 06:06 06/02/23 06:15 Temperature 98.3 F Pulse Rate 94 H 94 H Respiratory Rate 18 Blood Pressure 107/77 107/77 Pulse Oximetry 100 100 Oxygen Delivery Method Room Air 06/02/23 06:24 06/02/23 06:24 06/02/23 06:30 Temperature Pulse Rate 86 81 Respiratory Rate Blood Pressure 118/77 Pulse Oximetry 99 96 Oxygen Delivery Method 06/02/23 06:45 06/02/23 06:45 06/02/23 07:13 Temperature Pulse Rate 76 72 Respiratory Rate Blood Pressure 104/66 Pulse Oximetry 98 95 Oxygen Delivery Method 06/02/23 07:14 06/02/23 07:14 06/02/23 07:30 Temperature Pulse Rate 72 Respiratory Rate 21 Blood Pressure 107/65 101/61 Pulse Oximetry 99 Oxygen Delivery Method 06/02/23 07:30 06/02/23 08:00 06/02/23 08:00 Temperature Pulse Rate 64 67 Respiratory Rate 16 Blood Pressure 105/67 Pulse Oximetry 99 97 Oxygen Delivery Method Room Air 06/02/23 08:30 06/02/23 08:30 06/02/23 09:00 Temperature Pulse Rate 64 Respiratory Rate 11 L Blood Pressure 103/66 107/67 Pulse Oximetry 96 Oxygen Delivery Method 06/02/23 09:00 06/02/23 09:30 06/02/23 09:30 Temperature Pulse Rate 61 63 Respiratory Rate 10 L 14 Blood Pressure 111/69 Pulse Oximetry 98 99 Oxygen Delivery Method Room Air Room Air MDM - Male Genitourinary <Brandi Silver, - Last Filed: 06/04/23 07:27> Lab Data 06/02/23 06:30 06/02/23 06:30 Labs: Lab Results 06/02/23 06/02/23 06/02/23 Range/Units 06:30 06:40 07:23 WBC 32.1 H* (4.5-11.0) X10^3/uL RBC 4.63 (4.5-5.9) X10^6/uL Hgb 13.2 L (13.5-17.5) g/dL Hct 40.2 L (41-53) % MCV 86.8 (80-100) fL MCH 28.5 (26-34) PG MCHC 32.9 (30-36) % RDW 14.0 (11.6-14.8) % Plt Count 372 (150-400) X10^3/uL Neut % (Auto) Not Reportable Lymph % (Auto) Not Reportable [place] % (Auto) Not Reportable Eos % (Auto) Not Reportable Baso % (Auto) Not Reportable Lymph # (Auto) Not Reportable [place] # (Auto) Not Reportable Baso # (Auto) Not Reportable Total Counted 100 Seg Neutrophils % 83.0 H (38-70) % Band Neutrophils % 13.0 H (3-7) % Lymphocytes % (Manual) 2.0 L (25-45) % Monocytes % (Manual) 2.0 (2-11) % Neutrophils # (Manual) 93733 H (5905-1534) /uL RBC Morphology Normal morphology Sodium 134 L (137-145) mmol/L Potassium 4.1 (3.4-5.1) mmol/L Chloride 100 (98-107) mmol/L Carbon Dioxide 18 L (22-32) mmol/L BUN 53 H (9-20) mg/dL Creatinine 3.32 H (0.66-1.25) mg/dL Estimated GFR 18 L (>60) mL/min BUN/Creatinine Ratio 16.0 (6-22) Glucose 99 (80-110) mg/dL Lactate 2.1 (0.7-2.1) mmol/L Calcium 10.1 (8.4-10.2) mg/dL Total Bilirubin 1.2 (0.2-1.3) mg/dL AST 28 (17-59) IU/L ALT 23 (<50) IU/L Alkaline Phosphatase 84 (38-126) U/L Total Creatine Kinase 74 (55-170) U/L Troponin I 0.031 (0.01-0.034) ng/mL NT-Pro-B Natriuret Pep 2920 H (<450) pg/mL Total Protein 7.1 (6.3-8.2) g/dL Albumin 3.3 L (3.5-5.0) g/dL Globulin 3.8 (1.7-4.1) g/dL Albumin/Globulin Ratio 0.9 L (1.0-2.8) Procalcitonin 1.02 H (<0.5) ng/mL Urine Color Yellow Urine Appearance Turbid Urine pH TNP Ur Specific Varina TNP Urine Protein TNP Urine Glucose (UA) TNP Urine Ketones TNP Urine Occult Blood TNP Urine Nitrate TNP Urine Bilirubin TNP Urine Urobilinogen TNP Ur Leukocyte Esterase TNP Urine RBC 1-5/hpf (0-5/HPF) Urine WBC >100/hpf H (0-5/HPF) Ur Squamous Epith Cells None seen (0-5/HPF) Urine Bacteria Many (>30) H (None) Ur Culture Indicated? Specimen cultured Ur Random Sodium 65 (30-90) mmol/L Urine Creatinine 104.0 mg/dL SARS-CoV-2 (PCR) (Negative) 06/02/23 06/02/23 Range/Units 08:40 08:45 WBC (4.5-11.0) X10^3/uL RBC (4.5-5.9) X10^6/uL Hgb (13.5-17.5) g/dL Hct (41-53) % MCV (80-100) fL MCH (26-34) PG MCHC (30-36) % RDW (11.6-14.8) % Plt Count (150-400) X10^3/uL Neut % (Auto) Lymph % (Auto) [place] % (Auto) Eos % (Auto) Baso % (Auto) Lymph # (Auto) [place] # (Auto) Baso # (Auto) Total Counted Seg Neutrophils % (38-70) % Band Neutrophils % (3-7) % Lymphocytes % (Manual) (25-45) % Monocytes % (Manual) (2-11) % Neutrophils # (Manual) (2720-2726) /uL RBC Morphology Sodium (137-145) mmol/L Potassium (3.4-5.1) mmol/L Chloride (98-107) mmol/L Carbon Dioxide (22-32) mmol/L BUN (9-20) mg/dL Creatinine (0.66-1.25) mg/dL Estimated GFR (>60) mL/min BUN/Creatinine Ratio (6-22) Glucose (80-110) mg/dL Lactate 1.1 (0.7-2.1) mmol/L Calcium (8.4-10.2) mg/dL Total Bilirubin (0.2-1.3) mg/dL AST (17-59) IU/L ALT (<50) IU/L Alkaline Phosphatase (38-126) U/L Total Creatine Kinase (55-170) U/L Troponin I (0.01-0.034) ng/mL NT-Pro-B Natriuret Pep (<450) pg/mL Total Protein (6.3-8.2) g/dL Albumin (3.5-5.0) g/dL Globulin (1.7-4.1) g/dL Albumin/Globulin Ratio (1.0-2.8) Procalcitonin (<0.5) ng/mL Urine Color Urine Appearance Urine pH Ur Specific Varina Urine Protein Urine Glucose (UA) Urine Ketones Urine Occult Blood Urine Nitrate Urine Bilirubin Urine Urobilinogen Ur Leukocyte Esterase Urine RBC (0-5/HPF) Urine WBC (0-5/HPF) Ur Squamous Epith Cells (0-5/HPF) Urine Bacteria (None) Ur Culture Indicated? Ur Random Sodium (30-90) mmol/L Urine Creatinine mg/dL SARS-CoV-2 (PCR) Negative (Negative) MDM Narrative Medical decision making narrative: 77-year-old male overall well-appearing but has significant scrotal swelling, edema erythema appears to likely have infection versus possible mass or tumor. Patient had labs, IV, fluids, broad spectrum antibiotic coverage and CT abd pelvis. Patient was cleaned up by nursing. Patient had Solis catheter placed by nursing while I was in the room catheter was placed easily and had immediate output of purulent appearing urine. Patient signed out to Dr. Vaughn while awaiting workup. Dr vaughn: Received turned over. Review patient's history and physical and workup up to this point. Patient has not been hypotensive. Does have a leukocytosis. Lactate negative. Has a very extensive perineal abscess noted on the CT scan. There was no free air that would be concerning for Jesús's. Patient is relatively well-appearing. Is alert and oriented x3. Received 900 mg of clindamycin, 4.5 mg of Zosyn and 1.5 g of vancomycin between 0745 and 0800 hours. Patient also has what appears to be acute renal failure. FENa is 1.5%. Sodium is unremarkable. Potassium is unremarkable. I did discuss the case with Dr. Bermudez urologist at [facility] who did review the images. He recommended transfer to [facility] for surgical intervention. I discussed the need for transfer with the patient. He expressed understanding and agreement. Patient is stable for transport. <Skip Vaughn, - Last Filed: 12/02/23 09:55> Medical Records Attestation: I reviewed the patient's medical records. Lab Data Attestation: I reviewed the patient's lab results. Labs: Lab Results 06/02/23 06/02/23 06/02/23 Range/Units 06:30 06:40 07:23 WBC 32.1 H* (4.5-11.0) X10^3/uL RBC 4.63 (4.5-5.9) X10^6/uL Hgb 13.2 L (13.5-17.5) g/dL Hct 40.2 L (41-53) % MCV 86.8 (80-100) fL MCH 28.5 (26-34) PG MCHC 32.9 (30-36) % RDW 14.0 (11.6-14.8) % Plt Count 372 (150-400) X10^3/uL Neut % (Auto) Not Reportable Lymph % (Auto) Not Reportable C[place] % (Auto) Not Reportable Eos % (Auto) Not Reportable Baso % (Auto) Not Reportable Lymph # (Auto) Not Reportable [place] # (Auto) Not Reportable Baso # (Auto) Not Reportable Total Counted 100 Seg Neutrophils % 83.0 H (38-70) % Band Neutrophils % 13.0 H (3-7) % Lymphocytes % (Manual) 2.0 L (25-45) % Monocytes % (Manual) 2.0 (2-11) % Neutrophils # (Manual) 83411 H (7900-8439) /uL RBC Morphology Normal morphology Sodium 134 L (137-145) mmol/L Potassium 4.1 (3.4-5.1) mmol/L Chloride 100 (98-107) mmol/L Carbon Dioxide 18 L (22-32) mmol/L BUN 53 H (9-20) mg/dL Creatinine 3.32 H (0.66-1.25) mg/dL Estimated GFR 18 L (>60) mL/min BUN/Creatinine Ratio 16.0 (6-22) Glucose 99 (80-110) mg/dL Lactate 2.1 (0.7-2.1) mmol/L Calcium 10.1 (8.4-10.2) mg/dL Total Bilirubin 1.2 (0.2-1.3) mg/dL AST 28 (17-59) IU/L ALT 23 (<50) IU/L Alkaline Phosphatase 84 (38-126) U/L Total Creatine Kinase 74 (55-170) U/L Troponin I 0.031 (0.01-0.034) ng/mL NT-Pro-B Natriuret Pep 2920 H (<450) pg/mL Total Protein 7.1 (6.3-8.2) g/dL Albumin 3.3 L (3.5-5.0) g/dL Globulin 3.8 (1.7-4.1) g/dL Albumin/Globulin Ratio 0.9 L (1.0-2.8) Procalcitonin 1.02 H (<0.5) ng/mL Urine Color Yellow Urine Appearance Turbid Urine pH TNP Ur Specific Varina TNP Urine Protein TNP Urine Glucose (UA) TNP Urine Ketones TNP Urine Occult Blood TNP Urine Nitrate TNP Urine Bilirubin TNP Urine Urobilinogen TNP Ur Leukocyte Esterase TNP Urine RBC 1-5/hpf (0-5/HPF) Urine WBC >100/hpf H (0-5/HPF) Ur Squamous Epith Cells None seen (0-5/HPF) Urine Bacteria Many (>30) H (None) Ur Culture Indicated? Specimen cultured Ur Random Sodium 65 (30-90) mmol/L Urine Creatinine 104.0 mg/dL SARS-CoV-2 (PCR) (Negative) 06/02/23 06/02/23 Range/Units 08:40 08:45 WBC (4.5-11.0) X10^3/uL RBC (4.5-5.9) X10^6/uL Hgb (13.5-17.5) g/dL Hct (41-53) % MCV (80-100) fL MCH (26-34) PG MCHC (30-36) % RDW (11.6-14.8) % Plt Count (150-400) X10^3/uL Neut % (Auto) Lymph % (Auto) [place] % (Auto) Eos % (Auto) Baso % (Auto) Lymph # (Auto) [place] # (Auto) Baso # (Auto) Total Counted Seg Neutrophils % (38-70) % Band Neutrophils % (3-7) % Lymphocytes % (Manual) (25-45) % Monocytes % (Manual) (2-11) % Neutrophils # (Manual) (0238-6261) /uL RBC Morphology Sodium (137-145) mmol/L Potassium (3.4-5.1) mmol/L Chloride (98-107) mmol/L Carbon Dioxide (22-32) mmol/L BUN (9-20) mg/dL Creatinine (0.66-1.25) mg/dL Estimated GFR (>60) mL/min BUN/Creatinine Ratio (6-22) Glucose (80-110) mg/dL Lactate 1.1 (0.7-2.1) mmol/L Calcium (8.4-10.2) mg/dL Total Bilirubin (0.2-1.3) mg/dL AST (17-59) IU/L ALT (<50) IU/L Alkaline Phosphatase (38-126) U/L Total Creatine Kinase (55-170) U/L Troponin I (0.01-0.034) ng/mL NT-Pro-B Natriuret Pep (<450) pg/mL Total Protein (6.3-8.2) g/dL Albumin (3.5-5.0) g/dL Globulin (1.7-4.1) g/dL Albumin/Globulin Ratio (1.0-2.8) Procalcitonin (<0.5) ng/mL Urine Color Urine Appearance Urine pH Ur Specific Varina Urine Protein Urine Glucose (UA) Urine Ketones Urine Occult Blood Urine Nitrate Urine Bilirubin Urine Urobilinogen Ur Leukocyte Esterase Urine RBC (0-5/HPF) Urine WBC (0-5/HPF) Ur Squamous Epith Cells (0-5/HPF) Urine Bacteria (None) Ur Culture Indicated? Ur Random Sodium (30-90) mmol/L Urine Creatinine mg/dL SARS-CoV-2 (PCR) Negative (Negative) Imaging Data CT scan - abdomen/pelvis: Radiologist's Impression: PROCEDURE: CT ABDOMEN PELVIS W CON INDICATIONS: scrotal swelling, hard, erythema TECHNIQUE: After the administration of intravenous contrast, axial sections acquired from the lung bases to the pubic symphysis. Coronal and sagittal reformats were performed. For radiation dose reduction, the following was used: automated exposure control, adjustment of mA and/or kV according to patient size. COMPARISON: None. FINDINGS: Image quality: Diagnostic Lung bases: Bibasilar atelectasis. Heart: Heart size is normal. Coronary atherosclerotic vascular calcifications are noted. ABDOMEN: Liver: Unremarkable. Gallbladder: Unremarkable Biliary ducts: Unremarkable. Pancreas: Unremarkable. Spleen: Unremarkable. Adrenal Glands: Unremarkable. Kidneys and Ureters: Cortical scarring of the left kidney. Subcentimeter left renal hypodensity likely representing a cyst. Prominent left renal pelvis similar to the right without evidence for hydronephrosis. There is a prominent, dilated right renal pelvis without hydronephrosis of the right kidney. There is cortical scarring of the right kidney as well. Nonobstructing 11 mm stone seen in the right kidney. Bilateral ureters are otherwise normal in course and caliber. No ureteral stones. No significant perinephric or periureteral stranding. Stomach and Bowel: Stomach, small bowel loops, and colon are unremarkable. Peritoneum: No abnormal intraperitoneal fluid. No free air. Ventral Wall: There is a fat-containing umbilical hernia without acute inflammation. Abdominal Nodes: No retroperitoneal or mesenteric adenopathy by size criteria. Vessels: Scattered atherosclerotic calcifications of the abdominal aorta and iliac vessels without aneurysmal dilatation. The inferior vena cava appears patent. PELVIS: Pelvic Organs: There is moderate prostate enlargement with heterogeneous enhancement. Prostate gland measures approximately 6.9 x 5.9 cm in axial cross-sectional dimension. Bladder: Urinary bladder is decompressed by Solis catheter. There is moderate urinary bladder wall thickening with associated perivesicular inflammatory stranding. Additionally, there is an irregular, multi loculated fluid collection extending from the posterior, inferior margin of the urinary bladder and posterior wall of the prostate gland extending inferiorly into the pelvic floor and scrotal region measuring approximately 18 cm in AP dimension, 10 cm in transverse dimension, and approximately 12.6 cm in craniocaudal dimension. There is surrounding inflammatory changes. Several internal septations. There is incomplete enhancement posteriorly. No definite evidence for complete organization. No internal locules of gas. This appears to be in the perineal soft tissues but still outside the scrotum. Pelvic Nodes: No enlarged lymph nodes. Miscellaneous: No hernias are seen. Bones: No acute vertebral body compression fractures. Multilevel spondylitic changes throughout the imaged spine. No suspicious osseous lesions. IMPRESSION: 1. Large, multi loculated, septated fluid collection with near complete rim enhancement noted in the inferior perineal soft tissues extending into the posterior scrotum with associated inflammatory changes measuring approximately 18 x 10 x 12.6 cm in size. This appears to be communication with the posterior, inferior wall of the urinary bladder as well as the posterior wall/margin of the enlarged prostate gland. Additionally, the urinary bladder wall is thickened and inflamed consistent with concurrent cystitis. Finding is concerning for early abscess as the posterior margins are not definitively organized. It is felt that this fluid collection is in the perineal space but still external to the scrotal structures and no evidence of extension into the peritoneal cavity. Further evaluation with urologic consultation is recommended. 2. Nonobstructing 11 mm right renal stone without hydronephrosis. There is symmetric prominence of the bilateral renal pelvises with tapering beyond ureteropelvic junction suggestive of chronic UPJ obstructions. 3. Other chronic findings as above. Findings were discussed with Dr. Vaughn at 0746 hrs. The patient is draining purulent urine from his solis. No significant discrepancy with the film processing shift supervisor radiology preliminary report. [facility] Narrative Medical decision making narrative: 77-year-old male overall well-appearing but has significant scrotal swelling, edema erythema appears to likely have infection versus possible mass or tumor. Patient had labs, IV, fluids, broad spectrum antibiotic coverage and CT abd pelvis. Patient was cleaned up by nursing. Patient had Oslis catheter placed by nursing while I was in the room catheter was placed easily and had immediate output of purulent appearing urine. Patient signed out to Dr. Vaughn while awaiting workup. Dr vaughn: Received turned over. Review patient's history and physical and workup up to this point. Patient has not been hypotensive. Does have a leukocytosis. Lactate negative. Has a very extensive perineal abscess noted on the CT scan. There was no free air that would be concerning for Jesús's. Patient is relatively well-appearing. Is alert and oriented x3. Received 900 mg of clindamycin, 4.5 mg of Zosyn and 1.5 g of vancomycin between 0745 and 0800 hours. Patient also has what appears to be acute renal failure. FENa is 1.5%. Sodium is unremarkable. Potassium is unremarkable. I did discuss the case with Dr. Bermudez urologist at [facility] who did review the images. He recommended transfer to [facility] for surgical intervention. I discussed the need for transfer with the patient. He expressed understanding and agreement. Patient is stable for transport. Discharge Plan Departure Patient Disposition: [facility] Clinical Impression: Abscess of perineum, Urinary tract infection, Acute urinary retention, Acute renal failure Prescriptions: No Action aspirin 81 mg Tablet,Delayed Release (Dr/Ec) 81 mg PO EVERY OTHER DAY Qty: 0 ascorbic acid (vitamin C) 1,000 mg tablet 1 gram PO DAILY cholecalciferol (vitamin D3) 100 mcg (4,000 unit) capsule 100 mcg PO DAILY multivitamin Tablet 1 tab PO DAILY hydrochlorothiazide 25 mg tablet 25 mg PO DAILY Qty: 360 1RF lisinopril [Zestril] 10 mg tablet 10 mg PO DAILY Qty: 360 1RF levothyroxine 137 mcg tablet 137 mcg PO DAILY Qty: 90 3RF simvastatin 40 mg tablet 40 mg PO DAILY Qty: 90 3RF tamsulosin 0.4 mg capsule 0.4 mg PO DAILY Qty: 90 3RF Referrals: Jude Thorne MD [Primary Care Provider] -
[2023-06-02] MEDS: CLINDAMYCIN 900 MG/50 ML PIGGYBACK 50 MG IV (06:47)
[2023-06-02] MEDS: LIDOCAINE 2% (GLYDO) 6 ML GEL TOP (06:48)
[2023-06-02] MEDS: PIPERACILLIN/TAZO 4.5 GM in SODIUM CHLORIDE 0.9% 100 ML IV (06:48)
[2023-06-02] MEDS: SODIUM CHLORIDE 0.9% 1,000 ML 1000 ML IV (06:51)
[2023-06-02 07:01] LABS: Add Manual Diff / Slide Review YES; Hematocrit 40.2 % (41-53); Hemoglobin 13.2 g/dL (13.5-17.5); Mean Corpuscular HGB Conc 32.9 % (30-36); Mean Corpuscular Hemoglobin 28.5 PG (26-34); Mean Corpuscular Volume 86.8 fL (80-100); Platelet Count 372 X10^3/uL (150-400); Red Blood Cell Count 4.63 X10^6/uL (4.5-5.9)
[2023-06-02 07:02] LABS: Alanine Aminotransferase 23 IU/L (<50); Albumin 3.3 g/dL (3.5-5.0); Alkaline Phosphatase 84 U/L (38-126); Aspartate Aminotransferase 28 IU/L (17-59); Bilirubin Total 1.2 mg/dL (0.2-1.3); Blood Urea Nitrogen 53 mg/dL (9-20); Calcium 10.1 mg/dL (8.4-10.2); Carbon Dioxide 18 mmol/L (22-32); Chloride 100 mmol/L (98-107); Creatine Kinase 74 U/L (55-170); Estimated Glomerular Filt Rate 18 mL/min (>60); Glucose 99 mg/dL (80-110); HEMOLYSIS < 15 (0-50); Potassium 4.1 mmol/L (3.4-5.1); Sodium 134 mmol/L (137-145); Total Protein 7.1 g/dL (6.3-8.2); White Blood Cell Count 32.1 X10^3/uL (4.5-11.0)
[2023-06-02 07:03] LABS: Albumin Globulin Ratio 0.9 (1.0-2.8); Globulin 3.8 g/dL (1.7-4.1); Lactate (Lactic Acid) 2.1 mmol/L (0.7-2.1)
[2023-06-02 07:15] LABS: NT-proBNP (BNP-Adult 18+) 2920 pg/mL (<450); Troponin I 0.031 ng/mL (0.01-0.034)
[2023-06-02 07:19] LABS: Procalcitonin 1.02 ng/mL (<0.5)
[2023-06-02 07:27] LABS: Neutrophils Absolute Manual 30816 /uL (3000-5900); RBC Morphology Normal Morphology; Total Cells Counted 100
[2023-06-02 07:32] LABS: Appearance Urine UA TURBID; Bacteria Urine Many (>30); Color Urine UA YELLOW; Culture Indicated Urine Specimen Cultured; RBC Urine 1-5/HPF (0-5/HPF); Squamous Epithelial Cell Urine None Seen (0-5/HPF); WBC Urine >100/HPF (0-5/HPF)
[2023-06-02] MEDS: VANCOMYCIN 1,500 MG/300 ML PIGGYBACK 200 MG IV (07:42)
[2023-06-02] MEDS: SODIUM CHLORIDE 0.9% 1,000 ML 125 ML IV (07:59)
--- NOTE | 2023-06-02 08:15 | PC.NURSE ---
Patient was repositioned on his side and his backside was assessed with no wounds. Pt has been incontinent of stool and his soiled linens were changed. Patient resting on his back now, talking aloud to himself about how he reuses rags, how he takes care of himself, etc. No further concerns at this time.
[2023-06-02 08:23] LABS: Reflexed Lactate in 2 Hours Y
[2023-06-02 08:56] LABS: Lactate 2HR (Lactic Acid Rflx) 1.1 mmol/L (0.7-2.1)
[2023-06-02 08:58] LABS: Sodium Urine Random 65 mmol/L (30-90)
--- NOTE | 2023-06-02 10:16 | PC.NURSE ---
Addendum entered by Jay Jay Cisse R.N. 06/02/23 10:18: Pt has not been taking his hydrochlorothiazide or simvastatin due to running out of them the past week. Pt states he has been taking his tamsulosin and levothyroxine regularly, sometimes every other day. Pt responds sometimes that sometimes he is unable to get up to take meds. Original Note: Pt informed me he has bad history with [facility] urology and would like to never go back due to past experience which is vague.
[2023-06-02 10:18] LABS: COVID19 -Nasal RAPID Negative (Negative)
== END 2023-06-02 10:43 | disposition short-term general hospital (02) ==
PROVIDERS: Emergency Medicine; Emergency Provider Emergency Medicine; PCP Internal Medicine
DX: L02.215 Cutaneous abscess of perineum (principal); N39.0 Urinary tract infection, site not specified; N17.9 Acute kidney failure, unspecified; R33.9 Retention of urine, unspecified; Z11.52 Encounter for screening for COVID-19
CPT/HCPCS: 36415; 74177; 80053; 81001; 82550; 82570; 83605; 83880; 84145; 84300; 84484; 85007; 85025; 87040; 87086; 87186; 87635; 96365; 96366; 96367; 96368; 99284; 99285; C9803; J2543; Q9967

== ENCOUNTER → 2023-10-11 16:59 | Outpatient (CLI) | payer MEDICARE, SELFPAY ==
[2023-10-11 17:20] LABS: Add Manual Diff / Slide Review NO; Basophils Absolute Auto 100 /uL (0-100); Basophils Percent Auto 0.9 % (0-2); Eosinophils Absolute Auto 500 /uL (0-450); Eosinophils Percent Auto 6.3 % (2-4); Hematocrit 32.8 % (41-53); Hemoglobin 10.7 g/dL (13.5-17.5); Lymphocytes Absolute Auto 1500 /uL (1100-4500); Lymphocytes Percent Auto 19.4 % (25-40); Mean Corpuscular HGB Conc 32.7 % (30-36); Mean Corpuscular Hemoglobin 27.3 PG (26-34); Mean Corpuscular Volume 83.4 fL (80-100); Monocytes Absolute Auto 600 /uL (0-900); Monocytes Percent Auto 8.6 % (3-14); Neutrophils Absolute Auto 4800 /uL (1500-7000); Neutrophils Percent Auto 64.8 % (50-75); Platelet Count 268 X10^3/uL (150-400); Red Blood Cell Count 3.93 X10^6/uL (4.5-5.9); Red Cell Distribution Width 16.5 % (11.6-14.8); White Blood Cell Count 7.5 X10^3/uL (4.5-11.0)
[2023-10-11 18:16] LABS: Alanine Aminotransferase 11 IU/L (<50); Albumin 3.4 g/dL (3.5-5.0); Albumin Globulin Ratio 0.8 (1.0-2.8); Alkaline Phosphatase 70 U/L (38-126); Aspartate Aminotransferase 21 IU/L (17-59); BUN Creatinine Ratio 16.8 (6-22); Bilirubin Total 0.6 mg/dL (0.2-1.3); Blood Urea Nitrogen 18 mg/dL (9-20); Carbon Dioxide 25 mmol/L (22-32); Chloride 107 mmol/L (98-107); Cholesterol 113 mg/dL (140-199); Estimated Glomerular Filt Rate > 60 mL/min (>60); Globulin 4.1 g/dL (1.7-4.1); Glucose 85 mg/dL (80-110); HDL Cholesterol 36 mg/dL (40-60); HEMOLYSIS < 15 (0-50); LDL Cholesterol Calculated 59 mg/dL (<100); Sodium 138 mmol/L (137-145); Total Protein 7.5 g/dL (6.3-8.2); Triglycerides 91 mg/dL (35-150)
[2023-10-11 23:48] LABS: Free T4, Direct Thyroxine 1.38 ng/dL (0.78-2.19)
[2023-10-12 00:02] LABS: Thyroid Stimulating Hormone 4.09 uIU/mL (0.47-4.68)
== END ==
LOC: LAB 17:01
PROVIDERS: PCP Internal Medicine; Referring Provider Internal Medicine; Visit Provider Internal Medicine
DX: E78.2 Mixed hyperlipidemia (principal); E03.9 Hypothyroidism, unspecified; I10 Essential (primary) hypertension; D64.9 Anemia, unspecified
CPT/HCPCS: 36415; 80053; 80061; 84439; 84443; 85025

== ENCOUNTER 2024-01-08 11:55 | Observation (INO) | payer MEDICARE, SELFPAY ==
[2024-01-08] VITALS (15 sets, daily range): BP systolic 95–134; BP diastolic 65–85; PULSE 68–115; RESP 17–20; TEMP 36.4–36.9; O2SAT 93–98; BMI 27.4
--- NOTE | 2024-01-08 13:29 | PC.NURSE ---
Pt c/o bladder spasms. 04/10 pain. Bladder scan reveals 313cc. Suprapubic catheter insertion site oozing brownish discharge. Dr Flores notified.
--- NOTE | 2024-01-08 13:45 | PC.NURSE ---
Pt called RN to bedside and stated that he is experiencing relief from pressure/pain and that his suprapubic catheter started to drain. 200cc of dark red urine drained from catheter bag. Dr Flores notified.
--- NOTE | 2024-01-08 14:05 | ED_ITS ---
HPI - Male Genitourinary General Chief complaint: Urogenital-Male Stated complaint: blocked cath, forcing him to poop in diapers Time Seen by Provider: 01/08/24 13:57 Source: patient Mode of arrival: Ambulatory History of Present Illness HPI Narrative: Patient here for urinary retention and hematuria. Patient had complicated prostatic procedure [facility] June 2023. He ended up having a urethral catheter as well as suprapubic catheter placed. Patient is not on any blood thinners. He has had off and on hematuria since his procedures. However last night noted more blood in the catheter bag. Also had decreased outflow. During bladder scanning here patient states he had significant release of pressure in the bladder and now is draining into the bags. Gross hematuria in the bag. On initial bladder scan 313 mL. Related Data Home Medications Medication Instructions Recorded Confirmed ascorbic acid (vitamin C) 1,000 mg 1 gram PO DAILY 08/19/18 01/08/24 tablet cholecalciferol (vitamin D3) 100 100 mcg PO DAILY 01/23/20 01/08/24 mcg (4,000 unit) capsule multivitamin 1 tab PO DAILY 08/05/21 01/08/24 Previous Rx's Medication Instructions Recorded levothyroxine 137 mcg tablet 137 mcg PO DAILY #90 tabs 09/17/23 simvastatin 40 mg tablet 40 mg PO DAILY #90 tabs 09/17/23 Allergies Allergy/AdvReac Type Severity Reaction Status Date / Time No Known Drug Allergies Allergy Verified 10/12/23 15:52 Review of Systems Review of Systems Narrative: GENERAL: negative chills, fatigue, malaise, fever, sweats. HEENT: negative sinus pain, ear pain, sore throat RESPIRATORY: negative dyspnea, cough CARDIOVASCULAR: negative chest pain, palpitations GASTROINTESTINAL: negative nausea, vomiting, abdominal pain, positive suprapubic pain : negative dysuria, frequency, positive retention positive hematuria MUSCULOSKELETAL: negative muscle or bony pain SKIN: negative rash, skin lesions NEUROLOGIC: negative weakness, numbness Patient History Medical History Urological system complication of procedure Pelvic abscess in male Malfunction of indwelling urinary catheter Urethral disruption Suprapubic catheter (~06/2023) Abscess of perineum (~06/2023) Otosclerosis Elevated prostate specific antigen (PSA) (01/11/17) Essential hypertension Acquired hypothyroidism Hyperlipidemia (12/01/11) BPH (benign prostatic hyperplasia) Surgical History Status post recent transurethral resection of prostate (~06/2023) Status post ear surgery Status post lumbar laminectomy Social History household members: none Smoking Status: Never smoker alcohol intake: current additional social history: Rare EtOH Smoking Status: Never smoker alcohol intake frequency: holidays/special occasions only Substance Use Type: does not use Exam Narrative Exam Narrative: GENERAL: in no distress, not toxic not dyspneic HEAD: Normocephalic. EYES: Pupils equal round ENT: Mucous membranes moist. NECK: Trachea midline. CARDIOVASCULAR: Regular rate and rhythm RESPIRATORY: Clear to auscultation. Breath sounds equal bilaterally. No wheezes, rales, or rhonchi. GASTROINTESTINAL: Abdomen soft, non-tender, suprapubic catheter in place. No surrounding erythema edema or discharge. Bowel sounds are present. No peritoneal signs. EXTREMITIES: No gross deformities. NEURO: AOx4. SKIN: Warm and dry PSYCH: Not anxious, is cooperative Initial Vital Signs Initial Vital Signs: Vital Signs Temperature 98.5 F 01/08/24 12:05 Pulse Rate 115 H 01/08/24 12:05 Respiratory Rate 20 01/08/24 12:05 Blood Pressure 133/83 01/08/24 12:05 Pulse Oximetry 97 01/08/24 12:05 Oxygen Delivery Method Room Air 01/08/24 12:05 Course Orders Ordered: Discontinued Medications Acetaminophen (Acetaminophen 325 Mg Tablet) 650 mg PO NOW ONE Stop: 01/08/24 18:04 Last Admin: 01/08/24 18:12 Dose: 650 mg Documented By: ELOY Acetaminophen (Acetaminophen 325 Mg Tablet) 650 mg PO Q6H PRN PRN Reason: Fever/Mild Pain (1-3) Last Admin: 01/10/24 05:55 Dose: 650 mg Documented By: Admin: 01/09/24 17:59 Dose: 650 mg Documented By: Admin: 01/09/24 08:51 Dose: 650 mg Documented By: Admin: 01/09/24 01:26 Dose: 650 mg Documented By: RAZA Atorvastatin Calcium (Atorvastatin 20 Mg Tablet) 20 mg PO DAILY [facility] Last Admin: 01/10/24 09:07 Dose: 20 mg Documented By: Admin: 01/09/24 08:51 Dose: 20 mg Documented By: SHERON Ceftriaxone Sodium 2,000 mg/ (Sodium Chloride) 100 mls @ 200 mls/hr IV NOW ONE Stop: 01/08/24 18:07 Last Infusion: 01/08/24 20:00 Dose: Infused Documented By: Infusion: 01/08/24 18:21 Dose: 0 mls/hr Documented By: Admin: 01/08/24 18:13 Dose: 200 mls/hr Documented By: ELOY Ceftriaxone Sodium 2,000 mg/ (Sodium Chloride) 100 mls @ 200 mls/hr IV Q24H [facility] Last Infusion: 01/09/24 18:00 Dose: Infused Documented By: Admin: 01/09/24 17:10 Dose: 200 mls/hr Documented By: SHERON Levothyroxine Sodium (Levothyroxine 137 Mcg Tablet) 137 mcg PO DAILY [facility] Last Admin: 01/09/24 08:51 Dose: 137 mcg Documented By: SHERON Levothyroxine Sodium (Levothyroxine 137 Mcg Tablet) 137 mcg PO 0600 [facility] Last Admin: 01/10/24 05:52 Dose: 137 mcg Documented By: RAZA Naloxone HCl (Naloxone 0.4 Mg/Ml Vial) 0.2 mg IV Q2MIN PRN PRN Reason: Opiate Reversal Ondansetron HCl (Ondansetron 4 Mg Odt) 4 mg PO Q8HR PRN PRN Reason: Nausea And Vomiting Sodium Chloride (Sodium Chloride 0.9% Flush) 10 ml IV PRN PRN PRN Reason: Flush Last Admin: 01/09/24 17:14 Dose: 10 ml Documented By: SHERON Sodium Chloride (Sodium Chloride 0.9% Flush) 10 ml IV BID [facility] Last Admin: 01/10/24 09:08 Dose: 10 ml Documented By: Admin: 01/09/24 20:05 Dose: 10 ml Documented By: Admin: 01/09/24 08:52 Dose: 10 ml Documented By: Admin: 01/08/24 21:11 Dose: 10 ml Documented By: ABDIFATAH Trimethoprim/Sulfamethoxazole (Trimeth/Sulfa 160/800 (Ds) Tablet) 1 tab PO NOW ONE Stop: 01/10/24 08:18 Last Admin: 01/10/24 09:07 Dose: 1 tab Documented By: SHERON Vitamin D (Cholecalciferol (Vitamin D3) 1,000 Unit Tablet) 4,000 unit PO DAILY [facility] Last Admin: 01/09/24 08:50 Dose: 4,000 unit Documented By: SHERON Vitamin D (Cholecalciferol (Vitamin D3) 1,000 Unit Tablet) 2,000 unit PO BID [facility] Last Admin: 01/10/24 09:07 Dose: 2,000 unit Documented By: SHERON Vital Signs Vital signs: Vital Signs - 8 hr 01/08/24 12:05 01/08/24 12:56 01/08/24 12:57 Temperature 98.5 F Pulse Rate 115 H 103 H Respiratory Rate 20 Blood Pressure 133/83 115/85 Pulse Oximetry 97 97 Oxygen Delivery Method Room Air 01/08/24 12:57 01/08/24 13:00 01/08/24 13:30 Temperature Pulse Rate 105 H 92 H Respiratory Rate Blood Pressure Pulse Oximetry 98 98 94 Oxygen Delivery Method 01/08/24 14:00 01/08/24 14:30 01/08/24 15:00 Temperature Pulse Rate 86 73 73 Respiratory Rate Blood Pressure Pulse Oximetry 98 98 98 Oxygen Delivery Method 01/08/24 15:30 01/08/24 16:00 01/08/24 16:30 Temperature Pulse Rate 98 H 79 78 Respiratory Rate Blood Pressure Pulse Oximetry 98 96 94 Oxygen Delivery Method 01/08/24 16:35 01/08/24 16:35 01/08/24 17:00 Temperature Pulse Rate 78 Respiratory Rate Blood Pressure 104/74 96/69 Pulse Oximetry 93 Oxygen Delivery Method 01/08/24 17:00 Temperature Pulse Rate 70 Respiratory Rate Blood Pressure Pulse Oximetry 96 Oxygen Delivery Method MDM - Male Genitourinary Lab Data 01/10/24 06:30 01/10/24 06:30 Labs: Lab Results 01/08/24 01/08/24 Range/Units 13:43 14:20 WBC 12.4 H (4.5-11.0) X10^3/uL RBC 3.75 L (4.5-5.9) X10^6/uL Hgb 10.6 L (13.5-17.5) g/dL Hct 32.3 L (41-53) % MCV 86.0 (80-100) fL MCH 28.2 (26-34) PG MCHC 32.8 (30-36) % RDW 15.5 H (11.6-14.8) % Plt Count 219 (150-400) X10^3/uL Neut % (Auto) 86.1 H (50-75) % Lymph % (Auto) 6.6 L (25-40) % Cedar % (Auto) 6.4 (3-14) % Eos % (Auto) 0.6 L (2-4) % Baso % (Auto) 0.3 (0-2) % Neut # (Auto) 50567 H (3323-3791) /uL Lymph # (Auto) 800 L (5612-1371) /uL Cedar # (Auto) 800 (0-900) /uL Eos # (Auto) 100 (0-450) /uL Baso # (Auto) 0 (0-100) /uL PT 12.5 (9.4-12.5) SECONDS INR 1.1 (0.9-1.3) APTT 35 (25.1-36.5) SECONDS Sodium 139 (137-145) mmol/L Potassium 4.2 (3.4-5.1) mmol/L Chloride 109 H (98-107) mmol/L Carbon Dioxide 23 (22-32) mmol/L BUN 16 (9-20) mg/dL Creatinine 1.05 (0.66-1.25) mg/dL Estimated GFR > 60 (>60) mL/min BUN/Creatinine Ratio 15.2 (6-22) Glucose 94 (80-110) mg/dL Calcium 8.9 (8.4-10.2) mg/dL Total Bilirubin 0.6 (0.2-1.3) mg/dL AST 31 (17-59) IU/L ALT 15 (<50) IU/L Alkaline Phosphatase 68 (38-126) U/L Total Protein 7.1 (6.3-8.2) g/dL Albumin 3.5 (3.5-5.0) g/dL Globulin 3.6 (1.7-4.1) g/dL Albumin/Globulin Ratio 1.0 (1.0-2.8) Urine Color Red Urine Appearance Cloudy Urine pH 7.0 (4.5-8.0) Ur Specific Alpha 1.025 (1.000-1.035) Urine Protein 3+ H (Negative) Urine Glucose (UA) Negative (Negative) g/dL Urine Ketones Negative (NEGATIVE) Urine Occult Blood 3+ H (Negative) Urine Nitrate Positive H (Negative) Urine Bilirubin Negative (NEGATIVE) Urine Urobilinogen 0.2 (0.2) E.U./dL Ur Leukocyte Esterase 1+ H (NEGATIVE) Urine RBC >100/hpf H (0-5/HPF) Urine WBC 5-10/hpf H (0-5/HPF) Ur Squamous Epith Cells None seen (0-5/HPF) Urine Bacteria None seen (None) Ur Culture Indicated? Specimen cultured Vol Urine Centrifuged 10ml (spun) [facility] Narrative Medical decision making narrative: Patient here for urinary retention and hematuria. Patient had complicated prostatic procedure [facility] June 2023. He ended up having a urethral catheter as well as suprapubic catheter placed. Patient is not on any blood thinners. He has had off and on hematuria since his procedures. However last night noted more blood in the catheter bag. Also had decreased outflow. During bladder scanning here patient states he had significant release of pressure in the bladder and now is draining into the bags. Gross hematuria in the bag. On initial bladder scan 313 mL. After history and exam CBC CMP PT INR PTT urinalysis, urology consult [facility] Medical records reviewed: No recent visit for this complaint Differential considered: Includes but not limited to urinary retention catheter failure Lab Test results independently reviewed as above. Pertinent findings: WBC 12.4 hemoglobin 10.6 sodium 139 potassium 4.2 BUN 16 creatinine 1.05 GFR greater than 60 urinalysis positive nitrate positive blood Imaging studies independently reviewed: None indicated at this time Consultations: 5:00 p.m.. Spoke with [facility] urology, dr love, patient could be admitted here at this hospital. Change the suprapubic with a [address] May irrigate through this catheter. Recommends admission overnight observation. Agrees with antibiotics started here. He reviewed patient's chart and evidently patient had a prostatic abscess which required the urethral catheter. However with complications requiring a suprapubic catheter. 5:[address] Mcdowell, patient sees Dr. Thorne, she will admit patient for CBI Treatments: Tylenol Rocephin Re-evaluations: 6:07 p.m.. Patient tolerated suprapubic catheter replacement very well. Three-way 16 [place] Karimi catheter used to replace. Able to get good flush irrigation. Patient agrees and understands for admission overnight for CBI and IV antibiotics Discussion: Appropriate for admission for CBI and IV antibiotics. I did review with patient is urology group and primary group for admission here. Diagnosis: Acute UTI/urinary retention Discharge Plan Departure Patient Disposition: Admitted as Observation Clinical Impression: Acute retention of urine Hematuria Qualifiers: Hematuria type: unspecified type Qualified Code(s): R31.9 - Hematuria, unspecified Admit Date/Time: 01/08/24 17:22 Admit Provider: Yoselin Mcdowell
[2024-01-08 14:28] LABS: Appearance Urine UA CLOUDY; Bilirubin Urine UA NEGATIVE (NEGATIVE); Color Urine UA RED; Glucose Urine UA NEGATIVE (Negative); Ketones Urine UA NEGATIVE (NEGATIVE); Leukocyte Esterase Urine UA 1+ (NEGATIVE); Nitrite Urine UA POSITIVE (Negative); Occult Blood Urine UA 3+ (Negative); Protein Urine UA 3+ (Negative); Specific Gravity Urine UA 1.025 (1.000-1.035); Urobilinogen Urine UA 0.2 E.U./dL (0.2)
[2024-01-08 14:35] LABS: Urine Volume 10mL (spun)
[2024-01-08 14:35] LABS: Add Manual Diff / Slide Review NO; Basophils Absolute Auto 0 /uL (0-100); Basophils Percent Auto 0.3 % (0-2); Eosinophils Absolute Auto 100 /uL (0-450); Eosinophils Percent Auto 0.6 % (2-4); Hematocrit 32.3 % (41-53); Hemoglobin 10.6 g/dL (13.5-17.5); Lymphocytes Absolute Auto 800 /uL (1100-4500); Lymphocytes Percent Auto 6.6 % (25-40); Mean Corpuscular HGB Conc 32.8 % (30-36); Mean Corpuscular Hemoglobin 28.2 PG (26-34); Monocytes Absolute Auto 800 /uL (0-900); Monocytes Percent Auto 6.4 % (3-14); Neutrophils Absolute Auto 10600 /uL (1500-7000); Neutrophils Percent Auto 86.1 % (50-75); Platelet Count 219 X10^3/uL (150-400); Red Blood Cell Count 3.75 X10^6/uL (4.5-5.9); Red Cell Distribution Width 15.5 % (11.6-14.8); White Blood Cell Count 12.4 X10^3/uL (4.5-11.0)
[2024-01-08 14:40] LABS: Bacteria Urine None Seen; RBC Urine >100/HPF (0-5/HPF); WBC Urine 5-10/HPF (0-5/HPF)
[2024-01-08 14:41] LABS: Culture Indicated Urine Specimen Cultured; Squamous Epithelial Cell Urine None Seen (0-5/HPF)
[2024-01-08 14:42] LABS: INR 1.1 (0.9-1.3); Prothrombin Time 12.5 SECONDS (9.4-12.5)
[2024-01-08 14:45] LABS: PTT Partial Thromboplastin Tim 35 SECONDS (25.1-36.5)
[2024-01-08 14:47] LABS: Alanine Aminotransferase 15 IU/L (<50); Albumin 3.5 g/dL (3.5-5.0); Alkaline Phosphatase 68 U/L (38-126); Aspartate Aminotransferase 31 IU/L (17-59); BUN Creatinine Ratio 15.2 (6-22); Bilirubin Total 0.6 mg/dL (0.2-1.3); Blood Urea Nitrogen 16 mg/dL (9-20); Calcium 8.9 mg/dL (8.4-10.2); Carbon Dioxide 23 mmol/L (22-32); Chloride 109 mmol/L (98-107); Estimated Glomerular Filt Rate > 60 mL/min (>60); Globulin 3.6 g/dL (1.7-4.1); Glucose 94 mg/dL (80-110); HEMOLYSIS < 15 (0-50); Potassium 4.2 mmol/L (3.4-5.1); Sodium 139 mmol/L (137-145); Total Protein 7.1 g/dL (6.3-8.2)
--- NOTE | 2024-01-08 18:11 | PC.NURSE ---
Suprapubic cath changed by Dr Flores to [address]. Patient tolerated well. Large clots and quoc red blood return in bag. Both urethral and suprapubic cath leg bags changed out.
[2024-01-08] MEDS: ACETAMINOPHEN 325 MG TABLET 650 MG PO (18:12)
[2024-01-08] MEDS: cefTRIAXone 2,000 MG in SODIUM CHLORIDE 0.9% 100 ML 200 MG IV (18:13)
[2024-01-08] MEDS: SODIUM CHLORIDE 0.9% FLUSH 10 ML IV (21:11)
[2024-01-09 01:06] VITALS: BP 96/70; PULSE 60; RESP 17; TEMP 37.1; O2SAT 93
[2024-01-09] MEDS: ACETAMINOPHEN 325 MG TABLET 650 MG PO ×3 (01:26→17:59)
--- NOTE | 2024-01-09 01:36 | PC.NURSE ---
Patient is alert and oriented but very [place] in both ears. Breath sounds CTA with RA sat of 96%. HRR. Denies nausea. Was incontinent of stool upon arrival to floor so stood at bedside with walker and pericare given. He has an open area at base of scrotum. Has both an indwelling catheter (with no UOP) and a suprapubic catheter which initially showed hematuria with some clots in tubing but is now draining a cloudy yellow urine. Suprapubic sit cleansed with soap and water and was mucous like discharge so dressing placed around site. Is able to turn himself in bed. States he uses either a cane or a walker at home. 1+ bilateral LE edema noted. Bilateral calf SCD's were placed at start of shift. Does complain of 5/10 pressure like jabs in lower abdomen so medicated with Tylenol. Fall risk score is high and bed alarm is activated.
[2024-01-09 06:00] VITALS: BP 105/75; PULSE 64; RESP 17; TEMP 36.7; O2SAT 96
--- NOTE | 2024-01-09 07:11 | P.HP_ITS ---
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 And subsequently he ended up with a suprapubic catheter to help drain his urine. He had a least a partial resection of his urethra and so a Karimi catheter was initially placed but clamped with bladder drainage being achieved via the suprapubic catheter. He was discharged in that condition after the surgical an antibiotic treatment of his infection. He was discharged to group home but returned for hospitalization because of urinary retention with his suprapubic catheter having become plugged. He was readmitted to the hospital at [facility], and it was discovered he had recurrent fluid collection/abscess in the prostatic scrotal area. Eventually these were treated appropriately and he achieved appropriate urinary drainage with both the urethral/penile Karimi as well as a suprapubic catheter. He went back to group home but apparently required repeat cystoscopy for removal of clots and irrigation of bladder. He was finally discharged to home on the 18 July 2023. Since that time he has had intermittent hematuria but no obvious infection despite the fact he apparently he was not had catheter changes since he was discharged home. He was also had no follow-up with Urology since discharge. Had an appointment scheduled for last month that he had to cancel because of transportation issues. Has had that rescheduled for next week actually. They were planning to do a CT scan of his abdomen and pelvis prior to seeing him. In any event apparently he has been having intermittent hematuria, then develop more substantial hematuria in the last day or 2, noticed that he was not draining any urine from either the urethral Karimi or his suprapubic catheter, and he began to have pelvic pressure and inability to control his bowels Came to the ER for evaluation, during his evaluation there he had a sudden relief of his pelvic pressure and his catheter started draining urine again apparently. Lab work shows leukocytosis and probable cystitis at least. Discussion apparently was held by ER physician with the [facility] urology (who is on-call for [facility] urology last night) they recommended replacing his suprapubic catheter with a Karimi catheter and performing bladder irrigation as well as treating his infection. Overnight his irrigation has been clear but he has blood tinged urine in his tubing from his suprapubic site as I speak with him this morning. Fortunately patient's vital signs have been relatively stable, he has been modestly hypotensive but that is seems to be his baseline dating back to 2018 (patient is only rarely seen in any sort of outpatient or hospital setting, so previous/historically vital signs are somewhat limited) [facility] Medical History (Updated 01/09/24 @ 07:19 by Jude Thorne MD) Suprapubic catheter (~06/2023) Abscess of perineum (~06/2023) Otosclerosis Elevated prostate specific antigen (PSA) (01/11/17) Essential hypertension Acquired hypothyroidism Hyperlipidemia (12/01/11) BPH (benign prostatic hyperplasia) Surgical History Status post recent transurethral resection of prostate (~06/2023) Status post ear surgery Status post lumbar laminectomy Social History household members: none Smoking Status: Never smoker alcohol intake: current additional social history: Rare EtOH Meds Home Medications and Allergies Home Medications Medication Instructions Recorded Confirmed Type ascorbic acid (vitamin C) 1,000 mg 1 gram PO DAILY 08/19/18 01/08/24 History tablet cholecalciferol (vitamin D3) 100 100 mcg PO DAILY 01/23/20 01/08/24 History mcg (4,000 unit) capsule multivitamin 1 tab PO DAILY 08/05/21 01/08/24 History levothyroxine 137 mcg tablet 137 mcg PO DAILY #90 tabs 09/17/23 01/08/24 Rx simvastatin 40 mg tablet 40 mg PO DAILY #90 tabs 09/17/23 01/08/24 Rx Allergies Allergy/AdvReac Type Severity Reaction Status Date / Time No Known Drug Allergies Allergy Verified 10/12/23 15:52 Review of Systems Review of Systems ROS: Yes All systems reviewed with the patient and are negative except as otherwise documented Exam Vital Signs (past 8 hours): - 01/09/24 01:06 01/09/24 01:32 01/09/24 06:00 Temperature 98.7 F 98.0 F Pulse Rate 60 64 Respiratory Rate 17 17 Blood Pressure 96/70 105/75 Pulse Oximetry 93 96 Oxygen Delivery Method Room Air Oxygen Flow Rate 0 0 Oxygen Delivery Method Room Air Oxygen Flow Rate 0 Narrative Exam Narrative: Elderly man looking somewhat more cachectic than usual in no obvious distress lying in hospital bed HEENT-unremarkable Lungs-clear Heart-regular rate and rhythm no murmur Abdomen-soft nontender nondistended positive bowel tones Objective Labs 01/09/24 06:35 01/09/24 06:35 Labs: Laboratory Results - last 24 hr 01/08/24 01/08/24 13:43 14:20 WBC 12.4 H RBC 3.75 L Hgb 10.6 L Hct 32.3 L MCV 86.0 MCH 28.2 MCHC 32.8 RDW 15.5 H Plt Count 219 Neut % (Auto) 86.1 H Lymph % (Auto) 6.6 L [place] % (Auto) 6.4 Eos % (Auto) 0.6 L Baso % (Auto) 0.3 Neut # (Auto) 45005 H Lymph # (Auto) 800 L [place] # (Auto) 800 Eos # (Auto) 100 Baso # (Auto) 0 PT 12.5 INR 1.1 APTT 35 Sodium 139 Potassium 4.2 Chloride 109 H Carbon Dioxide 23 BUN 16 Creatinine 1.05 Estimated GFR > 60 BUN/Creatinine Ratio 15.2 Glucose 94 Calcium 8.9 Total Bilirubin 0.6 AST 31 ALT 15 Alkaline Phosphatase 68 Total Protein 7.1 Albumin 3.5 Globulin 3.6 Albumin/Globulin Ratio 1.0 Urine Color Red Urine Appearance Cloudy Urine pH 7.0 Ur Specific [place] 1.025 Urine Protein 3+ H Urine Glucose (UA) Negative Urine Ketones Negative Urine Occult Blood 3+ H Urine Nitrate Positive H Urine Bilirubin Negative Urine Urobilinogen 0.2 Ur Leukocyte Esterase 1+ H Urine RBC >100/hpf H Urine WBC 5-10/hpf H Ur Squamous Epith Cells None seen Urine Bacteria None seen Ur Culture Indicated? Specimen cultured Vol Urine Centrifuged 10ml (spun) Assessment & Plan Assessment & Plan narrative: 1. UTI-likely a complicated UTI. Go ahead and continue with current parental broad-spectrum antibiotics. I think he probably needs CT imaging of his pelvis to re-evaluate his status. I know that his urology follow-up in [place] wanted imaging prior to him being seen (which of course that has not happen). Uncertain as to what to do with the Karimi catheter and bladder irrigation etcetera. I am going to need to have Urology see him here at [facility] to assist in his care, as this is certainly a complicated situation that will require specialty care from Urology. For now however he was still has blood- tinged urine draining from his suprapubic site and I think he needs continued irrigation despite the fact that apparently he was irrigating clear for the most part. What to do with his intraurethral Karimi and whether or not to change that (per patient this required an over the wire procedure to place to begin with, therefore will require urology assistance), is unclear to me. Having a urethral Karimi in place without changing it for several months seems like an invitation for infection, but obviously his anatomy in the prostatic bed has been hugely distorted and catheter exchange would be possibly quite complicated. Hopefully the CT scan can provide some guidance as to what his current anatomy as like and rule out any complicating factor resulting in his presentation and hospitalization. 2. Hypothyroidism-continue patient's usual medication 3. Hyperlipidemia-continue patient's oral medication 4. VTE prophylaxis-SCDs for now. Given the hematuria and presumed obstruction of his urinary catheters would not be appropriate for chemo prophylaxis with Lovenox etcetera. 5. Code status-patient desires full code full resuscitation in the event of a sudden cardiac or respiratory arrest which is not at this time anticipated Time-Based Coding :: [TOTAL MINUTES] spent with patient and on the chart (including review of chart, obtaining history, exam, reviewing outside data, placing orders, documenting exam and treatment plan, and counseling patient) on [DATE]. PROFEE Charge Codes Initial inpatient/observation care: [id number]
[2024-01-09 07:26] LABS: Add Manual Diff / Slide Review NO; Basophils Absolute Auto 100 /uL (0-100); Basophils Percent Auto 0.5 % (0-2); Eosinophils Absolute Auto 200 /uL (0-450); Eosinophils Percent Auto 1.9 % (2-4); Hematocrit 29.3 % (41-53); Hemoglobin 9.7 g/dL (13.5-17.5); Lymphocytes Absolute Auto 1500 /uL (1100-4500); Lymphocytes Percent Auto 13.1 % (25-40); Mean Corpuscular HGB Conc 33.1 % (30-36); Mean Corpuscular Hemoglobin 28.6 PG (26-34); Mean Corpuscular Volume 86.2 fL (80-100); Monocytes Absolute Auto 800 /uL (0-900); Monocytes Percent Auto 6.9 % (3-14); Neutrophils Absolute Auto 8800 /uL (1500-7000); Neutrophils Percent Auto 77.6 % (50-75); Platelet Count 192 X10^3/uL (150-400); Red Cell Distribution Width 15.4 % (11.6-14.8); White Blood Cell Count 11.3 X10^3/uL (4.5-11.0)
[2024-01-09 07:42] LABS: BUN Creatinine Ratio 16.5 (6-22); Blood Urea Nitrogen 16 mg/dL (9-20); Calcium 8.4 mg/dL (8.4-10.2); Carbon Dioxide 26 mmol/L (22-32); Chloride 107 mmol/L (98-107); Estimated Glomerular Filt Rate > 60 mL/min (>60); Glucose 75 mg/dL (80-110); HEMOLYSIS < 15 (0-50); Potassium 4.1 mmol/L (3.4-5.1); Sodium 137 mmol/L (137-145)
[2024-01-09] MEDS: CHOLECALCIFEROL (VITAMIN D3) 1,000 UNIT TABLET 4000 UNIT PO (08:50)
[2024-01-09] MEDS: ATORVASTATIN 20 MG TABLET PO (08:51)
[2024-01-09] MEDS: LEVOTHYROXINE 137 MCG TABLET PO (08:51)
[2024-01-09] MEDS: SODIUM CHLORIDE 0.9% FLUSH 10 ML IV ×3 (08:52→20:05)
--- NOTE | 2024-01-09 09:00 | DI.CT.S_ITS ---
PROCEDURE: CT ABDOMEN PELVIS W CON INDICATIONS: Perineal abcess TECHNIQUE: After the administration of intravenous contrast, axial sections acquired from the lung bases to the pubic symphysis. Coronal and sagittal reformats were performed. For radiation dose reduction, the following was used: automated exposure control, adjustment of mA and/or kV according to patient size. COMPARISON: [facility], CT, CT ABDOMEN PELVIS W CON, 06/02/2023, 7:06. FINDINGS: Image quality: Diagnostic. Lower Chest: Small infiltrate versus atelectasis in posterior medial aspect of right lung base is seen. Dependent atelectasis in posterior aspect of left lung base is also noted. Heart size is enlarged, no pericardial effusion. Moderate coronary artery calcifications are seen. ABDOMEN: Liver: No solid mass. Gallbladder: No radiopaque gallstones or wall thickening. Biliary ducts: No biliary dilation. Pancreas: No ductal dilation. Spleen: Size is within normal limits. Adrenal Glands: No adrenal nodules. Kidneys and Ureters: Prominent bilateral renal pelvis are again seen without hydronephrosis or hydroureter. Bilateral renal cortical scarring are also noted and unchanged from prior study. 11 millimeter stone is again seen in lower pole right kidney and measures 909 Hounsfield unit in density. Stomach and Bowel: There is no bowel obstruction. No abnormal bowel wall thickening or mesenteric fat stranding. No peritoneal abscess collection. Mild fecal stasis in the colon is seen. Peritoneum: No abnormal intraperitoneal fluid. No free air. Ventral Wall: No significant ventral hernia. Abdominal Nodes: No retroperitoneal or mesenteric adenopathy by size criteria. Vessels: Aorta and inferior vena cava are normal in size. PELVIS: Pelvic Organs: Enlarged prostate gland with mass effect on floor of urinary bladder is seen. Bladder: Suprapubic catheter is seen in a decompressed urinary bladder . There is also a Karimi catheter with the tip terminated within upper urethra. There is suggestion of diffuse bladder wall thickening, underlying bladder wall mass cannot be excluded. No calcified bladder stones. Pelvic Nodes: No enlarged lymph nodes. Miscellaneous: No inguinal hernias are seen. There is left peroneal soft tissue swelling and edema with skin thickening. No discrete drainable abscess collection is noted. Bones: No aggressive osseous abnormality. No bony erosive changes or abnormal periosteal reaction. IMPRESSION: 1. Suggestion of left peroneal cellulitis. No discrete drainable abscess collection. 2. Presence of suprapubic catheter and Karimi catheter. Decompressed urinary bladder with suggestion of diffuse bladder wall thickening, underlying bladder wall mass cannot be excluded. Markedly enlarged prostate gland with mass effect on floor of urinary bladder. 3. Prominent bilateral renal pelvis unchanged from prior study. No obstructing stones. No hydronephrosis or hydroureter. Bilateral renal cortical scarring unchanged from prior study. 4. No bowel obstruction or abnormal bowel wall thickening. No peritoneal free fluid or free air. No abscess collection. 5. Suggestion of small infiltrate/atelectasis in posterior medial aspect of right lung base. Dictated by: Mikhail Stevens M.D. on 01/09/2024 at 8:46 Approved by: Mikhail Stevens M.D. on 01/09/2024 at 8:53
[2024-01-09 12:00] VITALS: BP 101/67; PULSE 71; RESP 16; TEMP 37.2; O2SAT 98
--- NOTE | 2024-01-09 13:06 | CM.DANOTE ---
Initial DCP Assessment Note Pt is a 78 yo male, resident of [place], arrives with a clogged catheter. PCP: Jude Thorne Payer: KELSEA Reviewed chart, met w/patient to introduce self and role. Patient reports he lives alone and independently in an apt in [place]. Patient drives and uses a cane or walker as needed. Patient has an ex that lives in [place] and three adult children that live out of state. No Hx of HH, hx of SNF in [facility]. No barriers identified at this time to patient's safe discharge home w/family to assist; close outpatient f/u recommended. CM team will plan to follow clinical course closely in case any DC needs or concerns arise. GABE Al Discharge Planning/Care Management CM Discharge Assessment Start: 01/09/24 13:04 Freq: Status: Active Protocol: Document 01/09/24 13:05 PALOMA (Rec: 01/09/24 13:06 PALOMA [id number]) Discharge Planning Assessment Assigned Designer GABE Miller DPOA/Assigned Designee Name Heidi Mendez, daughter Contact Information [phone] Advance Directives? No History Provided By Patient,Medical Record Prior Living Arrangements Apartment/Condo Household Members none Type of transporation used prior to Drives own vehicle admit Independent with ADL's Yes Is patient alert and oriented? Yes Barriers to Discharge No Discharge Plan Home Transportation Arrangement Family and friend Referrals Initiated None needed
--- NOTE | 2024-01-09 14:18 | PC.NURSE ---
1200 Dr. Rapp in to see Pt and discussed urological issues. Assessed urinary output and stated he was happy with the current functional status of both the penile and suprapubic catheters. S/P cath currently draining yellow urine without evidence of blood clots or obstruction. Per Dr. Rapp-no need to irrigate S/P catheter unless O/P diminishes. Dr. Rapp stated he does not expect output from the penile catheter as he suspects that was placed as a stent for the urethra to recover from prior surgery.
--- NOTE | 2024-01-09 15:06 | P.CONS_ITS ---
History of Present Illness Consult details Date Patient Seen: 01/09/24 Time Patient Seen: 12:00 Chief complaint: blocked cath, forcing him to poop in diapers Reason for consult: Catheter dysfunction complicated urologic condition Requesting provider: Jude Thorne Narrative: Was asked to see this 78-year-old male who has a very complicated urologic situation that is roughly as follows: Patient in June of 2023 presented to the emergency department and was found to have a prostatic/perineal/scrotal abscess. He was transferred to [facility] where he underwent at a minimum Transurethral resection and unroofing of prostatic abscess, incision and drainage of perineal abscess, scrotal abscess, question of urethral reconstruction, placement of suprapubic tube, multiple I and D and debridement surgeries. Patient also had a wound VAC placed for what sounds like an open perineal wound and again had the SP tube placed as well as a catheter per urethra that it appears was placed not for urinary drainage but to ?keep the urethra open?, the patient reports that it was originally plugged and not intended for urinary drainage. Patient was discharged on July 13, 2023 and then readmitted around the and or discharged in that time because of complications. The records are incomplete so it is difficult to tell exactly what transpired in any regard he did not follow-up he reports various reasons for not following up reports that the catheter in the penis it has been in since that time. He presented to the emergency department on the 07 of January with complaints of inability to void was found to have clot retention the [facility] urologists were consulted then recommended exchanging the suprapubic tube but leaving the penile catheter in place. The SP tube was exchanged and there was question about persistent hematuria. After reviewing the records, CT scan done today I believe that the catheter per urethra was never intended for urinary drainage but rather as a scaffold to as the patient said keep the urethra open. It does not appear to have a balloon but has not fallen out so I am suspicious that it has been stitched in place though I have no records to confirm that. On inspection today and with gentle traction it did not appear to be easily removable as there was significant resistance. Patient had the SP tube exchanged per the [facility] urologic staff recommendation to a [address] in his now draining clear yellow urine nursing reports that they have irrigated the catheter and have received only clear urine no clots. It was apparent that the patient did not have a clear understanding of the situation still has an open perineal wound and as will be noted below I believe that all of his immediate urologic needs are met at this time and he should keep his appointment with [facility] urology on 13 January. Patient was found to have what was believed to be a urinary tract infection is on antibiotics and I would agree that the antibiotics need to be continued. Meds Home Medications and Allergies Home Medications Medication Instructions Recorded Confirmed Type ascorbic acid (vitamin C) 1,000 mg 1 gram PO DAILY 08/19/18 01/08/24 History tablet cholecalciferol (vitamin D3) 100 100 mcg PO DAILY 01/23/20 01/08/24 History mcg (4,000 unit) capsule multivitamin 1 tab PO DAILY 08/05/21 01/08/24 History levothyroxine 137 mcg tablet 137 mcg PO DAILY #90 tabs 09/17/23 01/08/24 Rx simvastatin 40 mg tablet 40 mg PO DAILY #90 tabs 09/17/23 01/08/24 Rx Allergies Allergy/AdvReac Type Severity Reaction Status Date / Time No Known Drug Allergies Allergy Verified 10/12/23 15:52 Review of Systems Review of Systems ROS: Yes All systems reviewed with the patient and are negative except as otherwise documented (And problem list and as noted ) Exam Vital Signs (past 8 hours): - 01/09/24 12:00 Temperature 99 F Pulse Rate 71 Respiratory Rate 16 Blood Pressure 101/67 Pulse Oximetry 98 Oxygen Flow Rate 0 Oxygen Delivery Method Room Air Oxygen Flow Rate 0 Narrative Exam Narrative: General: This is an awake, alert, oriented, hard of hearing male who exhibits some pressure of speech but is in no acute distress. Abdomen: There is an SP tube in good position without evidence of infection or inflammation at the insertion site draining clear yellow urine. The abdomen is soft nontender. Genitourinary exam: Penis with what appears to be a [place] tip catheter in place that with gentle traction appears to be fixed. The perineum scrotum is distorted there was an open portion of a wound noted. Rectal exam: Not done Objective Labs 01/09/24 06:35 01/09/24 06:35 Labs: Laboratory Results - last 24 hr 01/09/24 06:35 WBC 11.3 H RBC 3.40 L Hgb 9.7 L Hct 29.3 L MCV 86.2 MCH 28.6 MCHC 33.1 RDW 15.4 H Plt Count 192 Neut % (Auto) 77.6 H Lymph % (Auto) 13.1 L [place] % (Auto) 6.9 Eos % (Auto) 1.9 L Baso % (Auto) 0.5 Neut # (Auto) 8800 H Lymph # (Auto) 1500 [place] # (Auto) 800 Eos # (Auto) 200 Baso # (Auto) 100 Sodium 137 Potassium 4.1 Chloride 107 Carbon Dioxide 26 BUN 16 Creatinine 0.97 Estimated GFR > 60 BUN/Creatinine Ratio 16.5 Glucose 75 L Calcium 8.4 PFSH Medical History (Updated 01/09/24 @ 15:21 by Kwasi Rapp MD) Urological system complication of procedure Pelvic abscess in male Malfunction of indwelling urinary catheter Urethral disruption Suprapubic catheter (~06/2023) Abscess of perineum (~06/2023) Otosclerosis Elevated prostate specific antigen (PSA) (01/11/17) Essential hypertension Acquired hypothyroidism Hyperlipidemia (12/01/11) BPH (benign prostatic hyperplasia) Surgical History Status post recent transurethral resection of prostate (~06/2023) Status post ear surgery Status post lumbar laminectomy Social History household members: none Tobacco & Substance Use Smoking Status: Never smoker alcohol intake: current Additional Social History additional social history: Rare EtOH Assessment & Plan Assessment and plan (1) Suprapubic catheter: Status: Acute (2) Acute retention of urine: Status: Acute (3) Urethral disruption: Status: Acute (4) Malfunction of indwelling urinary catheter: Qualifiers: Encounter type: initial encounter Qualified Code(s): T83.011A - Breakdown (mechanical) of indwelling urethral catheter, initial encounter Status: Acute (5) Pelvic abscess in male: Status: Acute (6) Urological system complication of procedure: Status: Acute (7) BPH (benign prostatic hyperplasia): Qualifiers: Lower urinary tract symptom presence: symptoms present Lower urinary tract symptom detail: urinary frequency Qualified Code(s): N40.1 - Benign prostatic hyperplasia with lower urinary tract symptoms; R35.0 - Frequency of micturition Status: Chronic Plan Assessment and plan: Very complex urologic situation. Patient appears to have a urethral catheter that his acting as a scaffold or a mold to keep the urethra open for future reconstruction. Records are not available to confirm this it also would seem that this catheter is stitched in place based on clinical situation and imaging though I can not verify this. Measures should be put in place to ensure this catheter does not come out until seen by the [facility] urology team. If it does come out this would not necessarily create an emergency as long as the SP tube is in place and draining. 2. SP tube is in place draining clear yellow urine and at this point with the patient on antibiotics all acute urologic needs were met. 3. History of pelvic abscess disruption of urethra prostatic abscess though this is not been described as Jesús's gangrene it certainly has a very complex situation that would likely require reconstructive urologic intervention. 4. With all acute urologic needs addressed by a draining suprapubic tube and antibiotics the patient should be seen by the [facility] urologic team as soon as possible patient reports that he has an appointment on the and this should be kept to this was emphasized with the patient and the seriousness of his situation in the complexity were also discussed. 5. Phone call was made to Dr. Thorne and my thoughts and concerns conveyed. Time-Based Coding :: ANGEL MINUTES] spent with patient and on the chart (including review of chart, obtaining history, exam, reviewing outside data, placing orders, documenting exam and treatment plan, and counseling patient) on [DATE]. At least 120 minutes.
[2024-01-09 16:00] VITALS: BP 98/69; PULSE 58; RESP 18; TEMP 37.2; O2SAT 97
[2024-01-09] MEDS: cefTRIAXone 2,000 MG in SODIUM CHLORIDE 0.9% 100 ML 200 MG IV (17:10)
[2024-01-09 20:41] VITALS: BP 101/67; PULSE 65; RESP 18; TEMP 37; O2SAT 96
[2024-01-10] VITALS: BP 122/73; PULSE 67; RESP 18; TEMP 36.6; O2SAT 96
--- NOTE | 2024-01-10 00:21 | PC.NURSE ---
Patient is alert and oriented; very COUNCIL. Breath sounds CTA with RA sat of 96%. HRR. Denied nausea. BT present and abdomen is soft; was incontinent of loose stool on previous shift. Indwelling penile catheter in place and also has suprapubic catheter; draining clear yellow urine. Suprapubic site with mucous like discharge so gauze dressing placed around insertion site. Is able to turn himself in bed. Out of bed with walker and SBA. Refused SCD's tonight so reminded to ankle wave/move legs when awake and he verbalizes understanding. Trace edema in bilateral LE noted. States he has 1-2/10 discomfort in lower abdomen with movement but states it is tolerable. Fall risk score is high and bed alarm is activated.
[2024-01-10] MEDS: LEVOTHYROXINE 137 MCG TABLET PO (05:52)
[2024-01-10] MEDS: ACETAMINOPHEN 325 MG TABLET 650 MG PO (05:55)
[2024-01-10 06:00] VITALS: BP 117/81; PULSE 54; RESP 18; TEMP 36.5; O2SAT 96
[2024-01-10 06:54] LABS: Add Manual Diff / Slide Review NO; Basophils Absolute Auto 100 /uL (0-100); Basophils Percent Auto 0.9 % (0-2); Eosinophils Absolute Auto 300 /uL (0-450); Eosinophils Percent Auto 3.7 % (2-4); Hematocrit 29.3 % (41-53); Lymphocytes Absolute Auto 1600 /uL (1100-4500); Lymphocytes Percent Auto 19.4 % (25-40); Mean Corpuscular Hemoglobin 29.5 PG (26-34); Mean Corpuscular Volume 86.8 fL (80-100); Monocytes Absolute Auto 900 /uL (0-900); Monocytes Percent Auto 10.9 % (3-14); Neutrophils Absolute Auto 5500 /uL (1500-7000); Neutrophils Percent Auto 65.1 % (50-75); Platelet Count 181 X10^3/uL (150-400); Red Blood Cell Count 3.37 X10^6/uL (4.5-5.9); Red Cell Distribution Width 15.7 % (11.6-14.8); White Blood Cell Count 8.4 X10^3/uL (4.5-11.0)
[2024-01-10 07:09] LABS: BUN Creatinine Ratio 18.8 (6-22); Blood Urea Nitrogen 18 mg/dL (9-20); Calcium 8.3 mg/dL (8.4-10.2); Carbon Dioxide 26 mmol/L (22-32); Chloride 109 mmol/L (98-107); Estimated Glomerular Filt Rate > 60 mL/min (>60); Glucose 85 mg/dL (80-110); HEMOLYSIS < 15 (0-50); Potassium 4.1 mmol/L (3.4-5.1); Sodium 136 mmol/L (137-145)
--- NOTE | 2024-01-10 07:36 | PM.DS.1 ---
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 And subsequently he ended up with a suprapubic catheter to help drain his urine. He had a least a partial resection of his urethra and so a Karimi catheter was initially placed but clamped with bladder drainage being achieved via the suprapubic catheter. He was discharged in that condition after the surgical an antibiotic treatment of his infection. He was discharged to custodial but returned for hospitalization because of urinary retention with his suprapubic catheter having become plugged. He was readmitted to the hospital at [facility], and it was discovered he had recurrent fluid collection/abscess in the prostatic scrotal area. Eventually these were treated appropriately and he achieved appropriate urinary drainage with both the urethral/penile Karimi as well as a suprapubic catheter. He went back to custodial but apparently required repeat cystoscopy for removal of clots and irrigation of bladder. He was finally discharged to home on the 18 July 2023. Since that time he has had intermittent hematuria but no obvious infection despite the fact he apparently he was not had catheter changes since he was discharged home. He was also had no follow-up with Urology since discharge. Had an appointment scheduled for last month that he had to cancel because of transportation issues. Has had that rescheduled for next week actually. They were planning to do a CT scan of his abdomen and pelvis prior to seeing him. In any event apparently he has been having intermittent hematuria, then develop more substantial hematuria in the last day or 2, noticed that he was not draining any urine from either the urethral Karimi or his suprapubic catheter, and he began to have pelvic pressure and inability to control his bowels Came to the ER for evaluation, during his evaluation there he had a sudden relief of his pelvic pressure and his catheter started draining urine again apparently. Lab work shows leukocytosis and probable cystitis at least. Discussion apparently was held by ER physician with the [facility] urology (who is on-call for [facility] urology last night) they recommended replacing his suprapubic catheter with a Karimi catheter and performing bladder irrigation as well as treating his infection. Overnight his irrigation has been clear but he has blood tinged urine in his tubing from his suprapubic site as I speak with him this morning. Fortunately patient's vital signs have been relatively stable, he has been modestly hypotensive but that is seems to be his baseline dating back to 2018 (patient is only rarely seen in any sort of outpatient or hospital setting, so previous/historically vital signs are somewhat limited) Discharge Providers Provider Date of admission: 01/08/24 17:22 Discharge Date: 01/10/24 Primary care physician: Jude Thorne MD Discharge provider: Jude Thorne MD Summary Hospital Course Discharge Diagnosis: 1. Complicated UTI with methicillin-resistant staph aureus 2. Status post perineal reconstruction after abscess 3. Suprapubic catheter obstruction, resolved 4. Hematuria secondary to UTI 5. Hypothyroidism 6. Hyperlipidemia Hospital Course: As above patient was admitted to the hospital. Irrigation of his bladder seem to result in clearing of his hematuria. Cultures of the urine subsequently grew staph aureus. He was placed on broad-spectrum cephalosporin antibiotics. However his culture did subsequently grow methicillin-resistant Staph aureus. This resulted in a change antibiotic therapy based on sensitivities to trimethoprim sulfamethoxazole orally. Patient remained afebrile and basically asymptomatic once his obstructed catheters were cleared, therefore was not felt as though he required parental treatment (given his clinical stability) Urology kindly consulted on patient and believe patient has a complicated urological story including probably need for reconstruction of his urethra. Patient needs to follow up with his specialty urology providers at [facility] in [place] for continued management, as most likely his current situation is beyond the ability to be cared for in the local community. However it was felt to be stable for discharge with free-flowing clear urine through the suprapubic catheter. It was felt as though the penile Karimi catheter should remain in place until removed by Urology in [place]. By the morning of the december patient was felt to be stable and was discharged home to continue on oral antibiotics for his UTI Patient was instructed that he absolutely needs to keep his upcoming appointment on January 13 at 13:45 with the urology clinic at [facility] as it was essential he complete his care with that team prior to transitioning to local urology care, and that patient has been quite fortunate that he was not had further complications over the last several months due to delays in his postoperative care dating all the way back to July of this year Exam Vital Signs (past 8 hours): - 01/10/24 00:00 01/10/24 06:00 Temperature 97.8 F 97.7 F Pulse Rate 67 54 L Respiratory Rate 18 18 Blood Pressure 122/73 117/81 Pulse Oximetry 96 96 Oxygen Flow Rate 0 0 Oxygen Delivery Method Room Air Oxygen Flow Rate 0 Objective Labs 01/10/24 06:30 01/10/24 06:30 Labs: Laboratory Results - last 24 hr 01/09/24 01/10/24 06:35 06:30 WBC 11.3 H 8.4 RBC 3.40 L 3.37 L Hgb 9.7 L 10.0 L Hct 29.3 L 29.3 L MCV 86.2 86.8 MCH 28.6 29.5 MCHC 33.1 34.0 RDW 15.4 H 15.7 H Plt Count 192 181 Neut % (Auto) 77.6 H 65.1 Lymph % (Auto) 13.1 L 19.4 L Morrison % (Auto) 6.9 10.9 Eos % (Auto) 1.9 L 3.7 Baso % (Auto) 0.5 0.9 Neut # (Auto) 8800 H 5500 Lymph # (Auto) 1500 1600 Morrison # (Auto) 800 900 Eos # (Auto) 200 300 Baso # (Auto) 100 100 Sodium 137 136 L Potassium 4.1 4.1 Chloride 107 109 H Carbon Dioxide 26 26 BUN 16 18 Creatinine 0.97 0.96 Estimated GFR > 60 > 60 BUN/Creatinine Ratio 16.5 18.8 Glucose 75 L 85 Calcium 8.4 8.3 L [facility] Medical History Urological system complication of procedure Pelvic abscess in male Malfunction of indwelling urinary catheter Urethral disruption Suprapubic catheter (~06/2023) Abscess of perineum (~06/2023) Otosclerosis Elevated prostate specific antigen (PSA) (01/11/17) Essential hypertension Acquired hypothyroidism Hyperlipidemia (12/01/11) BPH (benign prostatic hyperplasia) Surgical History Status post recent transurethral resection of prostate (~06/2023) Status post ear surgery Status post lumbar laminectomy Social History household members: none Smoking Status: Never smoker alcohol intake: current additional social history: Rare EtOH Discharge Assessment & Plan Assessment and Plan Plan of Treatment: Continue course of oral antibiotic therapy for UTI Keep appointment with [facility]rology on January 14, 2024 at 13:45 Follow-up appointment with Dr. Thorne in 2-3 weeks Discharge Plan Discharge Plan Patient Disposition: Home Discharge orders & Medications Prescriptions: New sulfamethoxazole-trimethoprim 800-160 mg tablet 1 tab PO BID 7 Days Qty: 14 0RF Continued simvastatin 40 mg tablet 40 mg PO DAILY Qty: 90 3RF levothyroxine 137 mcg tablet 137 mcg PO DAILY Qty: 90 3RF ascorbic acid (vitamin C) 1,000 mg tablet 1 gram PO DAILY cholecalciferol (vitamin D3) 100 mcg (4,000 unit) capsule 100 mcg PO DAILY multivitamin Tablet 1 tab PO DAILY Follow up/Referrals: Jude Thorne MD [Primary Care Provider] - 2 Weeks (Also keep appointment at [facility]rology for 01/14/24 at 1:45 pm) Discharge Health Status Multidrug resistant organism: MRSA Diet/Activity/Treatments Diet: Diet as Tolerated Skin/Wound/Dressing Care Report to your healthcare provider any signs of infection, such as:: chills, fever and unusual drainage Visit Report/Discharge Packet Stand Alone Forms: Patient Portal/API Discharge Data Primary Care Provider: Jude Thorne Attending Provider: Jude Thorne Admit Date/Time: 01/08/24 17:22 PROFEE Charge Codes Discharge inpatient/observation: [id number]
[2024-01-10 08:00] VITALS: BP 123/85; PULSE 59; RESP 16; TEMP 36.9; O2SAT 96
[2024-01-10] MEDS: TRIMETH/SULFA 160/800 (DS) TABLET 1 TAB PO (09:07)
[2024-01-10] MEDS: CHOLECALCIFEROL (VITAMIN D3) 1,000 UNIT TABLET 2000 UNIT PO (09:07)
[2024-01-10] MEDS: ATORVASTATIN 20 MG TABLET PO (09:07)
[2024-01-10] MEDS: SODIUM CHLORIDE 0.9% FLUSH 10 ML IV (09:08)
--- NOTE | 2024-01-10 11:34 | PC.NURSE ---
Pt is ready for discharge home. IV has been removed. Urinary catheter bags have been changed to leg bags. Went over d/c instructions with Pt-discussed d/c meds, time of last dose, reviewed stroke education, s/s of infection, reminded Pt to keep an eye on his urine to watch for o/p changes, or hematuria, and to drink plenty of fluids to prevent constipation or dehydration and to follow up as scheduled with [facility] on Sunday and Dr. Thorne on the . Pt denied further questions and will be ready to be driven home when his friend arrives.
--- NOTE | 2024-01-10 13:17 | CM.DPNOTE ---
DC Note Discharge home today; close outpatient follow up recommended. No needs identified by this CM team. Patient is at [facility]. [place]
== END 2024-01-10 12:25 | disposition home or self-care (01) ==
LOC: ED 13:57 → AC 17:23
PROVIDERS: Admitting Provider Family Medicine; Emergency Provider Emergency Medicine; PCP Internal Medicine; Visit Provider Internal Medicine
DX: N30.91 Cystitis, unspecified with hematuria (principal); B95.61 Methicillin susceptible Staphylococcus aureus infection as the cause of diseases classified elsewhere; R33.8 Other retention of urine; Z93.59 Other cystostomy status; T83.011A Breakdown (mechanical) of indwelling urethral catheter, initial encounter; K65.1 Peritoneal abscess; N99.89 Other postprocedural complications and disorders of genitourinary system
CPT/HCPCS: 36415; 51798; 74177; 80048; 80053; 81001; 85025; 85610; 85730; 87077; 87086; 87147; 87186; 96365; 96376; 99284; G0378; J0696; Q9967

== ENCOUNTER → 2025-01-15 16:01 | Outpatient (CLI) | payer MEDICARE, SELFPAY ==
[2024-01-24 11:04] VITALS: BMI 27.4
[2025-01-15 17:46] LABS: Add Manual Diff / Slide Review NO; Hematocrit 34.6 % (41-53); Hemoglobin 11.7 g/dL (13.5-17.5); Lymphocytes Absolute Auto 1500 /uL (1100-4500); Mean Corpuscular HGB Conc 33.9 % (30-36); Mean Corpuscular Hemoglobin 30.9 PG (26-34); Mean Corpuscular Volume 91.1 fL (80-100); Platelet Count 229 X10^3/uL (150-400)
[2025-01-15 18:22] LABS: Alanine Aminotransferase 17 IU/L (<50); Albumin 3.6 g/dL (3.5-5.0); Albumin Globulin Ratio 1.0 (1.0-2.8); Alkaline Phosphatase 61 U/L (38-126); Blood Urea Nitrogen 21 mg/dL (9-20); Calcium 9.1 mg/dL (8.4-10.2); Carbon Dioxide 23 mmol/L (22-32); Chloride 109 mmol/L (98-107); Cholesterol 127 mg/dL (140-199); Estimated Glomerular Filt Rate > 60 mL/min (>60); Globulin 3.6 g/dL (1.7-4.1); Glucose 83 mg/dL (70-99); HDL Cholesterol 33 mg/dL (40-60); HEMOLYSIS < 15 (0-50); Potassium 4.7 mmol/L (3.4-5.1); Sodium 139 mmol/L (137-145); Total Protein 7.2 g/dL (6.3-8.2); Triglycerides 77 mg/dL (35-150)
[2025-01-15 18:33] LABS: Free T4, Direct Thyroxine 1.55 ng/dL (0.78-2.19)
[2025-01-15 18:47] LABS: Thyroid Stimulating Hormone 0.271 uIU/mL (0.47-4.68)
== END ==
PROVIDERS: PCP Internal Medicine; Referring Provider Internal Medicine; Visit Provider Internal Medicine
DX: I10 Essential (primary) hypertension (principal); E03.9 Hypothyroidism, unspecified; E78.5 Hyperlipidemia, unspecified
CPT/HCPCS: 36415; 80053; 80061; 84439; 84443; 85025